=== PATIENT | female | born 1945 | race Caucasian/White ===

== ENCOUNTER → 2016-08-30 | Outpatient (CLI) | payer MEDICARE, BC ==
[2016-08-30 10:03] LABS: ABSOLUTE BASOPHILS # (AUTO) 0.1 10^3/uL (0.0-0.2); ABSOLUTE EOSINOPHILS # (AUTO) 0.4 10^3/uL (0.0-0.6); ABSOLUTE MONOCYTES (AUTO) 0.5 10^3/uL (0.1-1.4); ABSOLUTE NEUT (AUTO) 5.7 10^3/uL (1.7-8.2); BASOPHILS % (AUTO) 1.1 % (0-2); EOSINOPHILS % (AUTO) 4.1 % (0-6); HEMATOCRIT 41.2 % (36.0-47.0); HEMOGLOBIN 13.6 g/dL (12.0-15.5); HGB HCT DIFFERENCE -0.4; LYMPHOCYTES % (AUTO) 30.8 % (13-45); MEAN CORPUSCULAR HEMOGLOBIN 29.9 pg (27.0-33.4); MEAN CORPUSCULAR HGB CONC 33.1 g/dL (32.0-36.0); MEAN CORPUSCULAR VOLUME 90 fl (80-97); MONOCYTES % (AUTO) 5.5 % (3-13); RED BLOOD COUNT 4.56 10^6/uL (3.72-5.28); SEGMENTED NEUTROPHILS % (AUTO) 58.5 % (42-78); WHITE BLOOD COUNT 9.7 10^3/uL (4.0-10.5)
[2016-08-30 10:31] LABS: ALANINE AMINOTRANSFERASE 75 U/L (9-52); ALBUMIN 4.5 g/dL (3.5-5.0); ALKALINE PHOSPHATASE 183 U/L (38-126); ANION GAP 14 (5-19); ASPARTATE AMINO TRANSFERASE 98 U/L (14-36); BILIRUBIN,DIRECT 0.4 mg/dL (0.0-0.4); BLOOD UREA NITROGEN 10 mg/dL (7-20); CALCIUM 10.3 mg/dL (8.4-10.2); CARBON DIOXIDE 25 mmol/L (22-30); CHLORIDE 103 mmol/L (98-107); CREATININE RESULT 0.99 mg/dL (0.52-1.25); GLUCOSE 253 mg/dL (75-110); POTASSIUM 4.3 mmol/L (3.6-5.0); SODIUM 141.5 mmol/L (137-145); TOTAL PROTEIN 8.6 g/dL (6.3-8.2)
[2016-08-30 10:53] LABS: THYROID STIMULATING HORMONE 2.98 uIU/mL (0.47-4.68)
[2016-09-01 14:09] LABS: CHOLESTEROL 179.65 mg/dL (0-200); Direct HDL 51 mg/dL (>40); TRIGLYCERIDES 159 mg/dL (<150)
[2016-09-01 14:20] LABS: DIRECT LDL 99 mg/dL (<100)
[2016-09-01 14:24] LABS: VLDL CHOLESTEROL 31.8 mg/dL (10-31)
== END ==
LOC: OD 09:09
PROVIDERS: ATTEND Family Medicine
DX: Z79.899 Other long term (current) drug therapy (principal); E04.0 Nontoxic diffuse goiter; R73.9 Hyperglycemia, unspecified; Z13.1 Encounter for screening for diabetes mellitus; E53.8 Deficiency of other specified B group vitamins; R25.9 Unspecified abnormal involuntary movements; E11.65 Type 2 diabetes mellitus with hyperglycemia; T50.905A Adverse effect of unspecified drugs, medicaments and biological substances, initial encounter
CPT/HCPCS: 36415; 80048; 80061; 80076; 82306; 82607; 82947; 83036; 84439; 84443; 85025

== ENCOUNTER → 2016-11-24 | Outpatient (CLI) | payer MEDICARE, BC ==
[2016-11-24 11:15] LABS: ALANINE AMINOTRANSFERASE 40 U/L (9-52); ALBUMIN 4.6 g/dL (3.5-5.0); ALKALINE PHOSPHATASE 105 U/L (38-126); ANION GAP 13 (5-19); ASPARTATE AMINO TRANSFERASE 29 U/L (14-36); BILIRUBIN,DIRECT 0.4 mg/dL (0.0-0.4); BILIRUBIN,TOTAL 0.6 mg/dL (0.2-1.3); BLOOD UREA NITROGEN 20 mg/dL (7-20); CALCIUM 10.7 mg/dL (8.4-10.2); CARBON DIOXIDE 27 mmol/L (22-30); CHLORIDE 104 mmol/L (98-107); CHOLESTEROL 136.01 mg/dL (0-200); CREATININE RESULT 1.18 mg/dL (0.52-1.25); Direct HDL 60 mg/dL (>40); GLUCOSE 108 mg/dL (75-110); POTASSIUM 4.6 mmol/L (3.6-5.0); SODIUM 144.2 mmol/L (137-145); TOTAL PROTEIN 8.2 g/dL (6.3-8.2); TRIGLYCERIDES 137 mg/dL (<150)
[2016-11-24 11:37] LABS: DIRECT LDL 53 mg/dL (<100)
[2016-11-25 10:38] LABS: CREATININE URINE 129.2 mg/dL (Not Estab.); MICROALBUMIN URINE 39.7 ug/mL (Not Estab.)
== END ==
LOC: OD 09:36
PROVIDERS: ATTEND Family Medicine
DX: E11.65 Type 2 diabetes mellitus with hyperglycemia (principal); E78.5 Hyperlipidemia, unspecified
CPT/HCPCS: 36415; 80048; 80061; 80076; 82043; 82570; 83036

== ENCOUNTER → 2016-12-01 | Outpatient (CLI) | payer MEDICARE, BC | LOC: OD 11:51 | PROVIDERS: ATTEND Family Medicine | DX: E83.52 Hypercalcemia (principal) | CPT/HCPCS: 36415; 82306 ==

== ENCOUNTER → 2017-03-14 | Outpatient (CLI) | payer MEDICARE, BC | LOC: OD 11:40 | PROVIDERS: ATTEND Family Medicine | DX: E11.65 Type 2 diabetes mellitus with hyperglycemia (principal) | CPT/HCPCS: 36415; 83036 ==

== ENCOUNTER → 2017-03-25 | Outpatient (CLI) | payer MEDICARE, BC ==
--- NOTE | 2017-03-25 15:10 | WOMENS IMAGING REPORT ---
EXAM DESCRIPTION: BONE DENSITY HIP/SPINE COMPLETED DATE/TIME: 03/25/2017 1:25 pm REASON FOR STUDY: ASYMPTOMATIC MENOPAUSAL STATE Z78.0 ASYMPTOMATIC MENOPAUSAL STATE COMPARISON: 2006 TECHNIQUE: Dual-Energy X-ray Absorptiometry (DEXA) of the AP Spine and Hip. LIMITATIONS: None. FINDINGS: LUMBAR SPINE: The bone mineral density (BMD) measured from L1-L4 in the AP projection correlates with a T-score of +3.3, which is normal as defined by the World Health Organization. This is similar compared to 2006 HIP: The bone mineral density (BMD) measured in the left femoral neck at the hip correlates with a T-score of -1.1, which is osteopenic as defined by the World Health Organization. This is similar compared to 2006 IMPRESSION: 1. LUMBAR SPINE: Normal 2. HIP: Osteopenic COMMENT: The World Health Organization defines low BMD as follows: T-score: Normal: Greater than -1.0 Osteopenia: Between -1.0 and -2.5 Osteoporosis: Less than -2.5 without fractures Established osteoporosis: Less than -2.5 with fractures In general, you may wish to consider: Diagnosis Treatment Follow-up DEXA Normal BMD Prevention 2-3 years Osteopenia Prevention/Therapy 1-2 years Osteoporosis Therapy Yearly TECHNICAL DOCUMENTATION: JOB ID: [id number] [employer]- All Rights Reserved
== END ==
LOC: WI 13:15
PROVIDERS: ATTEND Obstetrics & Gynecology
DX: M85.88 Other specified disorders of bone density and structure, other site (principal); Z78.0 Asymptomatic menopausal state
CPT/HCPCS: 77080

== ENCOUNTER → 2017-04-11 | Outpatient (CLI) | payer MEDICARE, BC ==
[2017-04-11 10:56] LABS: ABSOLUTE BASOPHILS # (AUTO) 0.1 10^3/uL (0.0-0.2); ABSOLUTE EOSINOPHILS # (AUTO) 0.3 10^3/uL (0.0-0.6); ABSOLUTE LYMPHOCYTES (AUTO) 3.3 10^3/uL (0.5-4.7); ABSOLUTE MONOCYTES (AUTO) 0.5 10^3/uL (0.1-1.4); ABSOLUTE NEUT (AUTO) 4.1 10^3/uL (1.7-8.2); BASOPHILS % (AUTO) 0.7 % (0-2); EOSINOPHILS % (AUTO) 3.3 % (0-6); HEMATOCRIT 40.6 % (36.0-47.0); HEMOGLOBIN 13.7 g/dL (12.0-15.5); LYMPHOCYTES % (AUTO) 40.2 % (13-45); MEAN CORPUSCULAR HGB CONC 33.7 g/dL (32.0-36.0); MEAN CORPUSCULAR VOLUME 89 fl (80-97); MONOCYTES % (AUTO) 5.6 % (3-13); PLATELET COUNT 241 10^3/uL (150-450); RED BLOOD COUNT 4.55 10^6/uL (3.72-5.28); RED CELL DISTRIBUTION WIDTH 13.3 % (11.5-14.0); SEGMENTED NEUTROPHILS % (AUTO) 50.2 % (42-78); TOTAL CELLS COUNTED % (AUTO) 100 %; WHITE BLOOD COUNT 8.1 10^3/uL (4.0-10.5)
[2017-04-11 11:02] LABS: APPEARANCE,URINE CLEAR; BILIRUBIN,URINE NEGATIVE (NEGATIVE); COLOR,URINE YELLOW; GLUCOSE, URINE NEGATIVE (NEGATIVE); KETONES,URINE NEGATIVE (NEGATIVE); LEUKOCYTE ESTERASE,URINE TRACE (NEGATIVE); NITRITE,URINE NEGATIVE (NEGATIVE); PROTEIN,URINE NEGATIVE (NEGATIVE); URINE SPECIFIC GRAVITY 1.012; UROBILINOGEN,URINE NEGATIVE mg/dL (<2.0)
[2017-04-11 11:19] LABS: ALANINE AMINOTRANSFERASE 52 U/L (9-52); ALBUMIN 4.6 g/dL (3.5-5.0); ALKALINE PHOSPHATASE 100 U/L (38-126); ANION GAP 9 (5-19); ASPARTATE AMINO TRANSFERASE 46 U/L (14-36); BILIRUBIN,DIRECT 0.3 mg/dL (0.0-0.4); BILIRUBIN,TOTAL 0.5 mg/dL (0.2-1.3); BLOOD UREA NITROGEN 11 mg/dL (7-20); CALCIUM 10.3 mg/dL (8.4-10.2); CARBON DIOXIDE 29 mmol/L (22-30); CHLORIDE 108 mmol/L (98-107); GLUCOSE 128 mg/dL (75-110); POTASSIUM 4.1 mmol/L (3.6-5.0); SODIUM 146.1 mmol/L (137-145); TOTAL PROTEIN 7.8 g/dL (6.3-8.2)
== END ==
LOC: OD 09:48
PROVIDERS: ATTEND Family Medicine
DX: N17.9 Acute kidney failure, unspecified (principal); R74.0 Nonspecific elevation of levels of transaminase and lactic acid dehydrogenase [LDH]; D72.829 Elevated white blood cell count, unspecified
CPT/HCPCS: 36415; 80048; 80076; 81001; 85025

== ENCOUNTER → 2017-06-09 | Outpatient (CLI) | payer MEDICARE, BC ==
[2017-06-09 10:11] LABS: ABSOLUTE BASOPHILS # (AUTO) 0.1 10^3/uL (0.0-0.2); ABSOLUTE EOSINOPHILS # (AUTO) 0.3 10^3/uL (0.0-0.6); ABSOLUTE LYMPHOCYTES (AUTO) 3.5 10^3/uL (0.5-4.7); ABSOLUTE MONOCYTES (AUTO) 0.6 10^3/uL (0.1-1.4); ABSOLUTE NEUT (AUTO) 5.4 10^3/uL (1.7-8.2); BASOPHILS % (AUTO) 0.6 % (0-2); EOSINOPHILS % (AUTO) 3.5 % (0-6); HEMATOCRIT 40.6 % (36.0-47.0); HEMOGLOBIN 13.7 g/dL (12.0-15.5); LYMPHOCYTES % (AUTO) 35.4 % (13-45); MEAN CORPUSCULAR HEMOGLOBIN 29.6 pg (27.0-33.4); MEAN CORPUSCULAR HGB CONC 33.8 g/dL (32.0-36.0); MEAN CORPUSCULAR VOLUME 88 fl (80-97); MONOCYTES % (AUTO) 5.7 % (3-13); PLATELET COUNT 236 10^3/uL (150-450); RED BLOOD COUNT 4.64 10^6/uL (3.72-5.28); RED CELL DISTRIBUTION WIDTH 12.7 % (11.5-14.0); SEGMENTED NEUTROPHILS % (AUTO) 54.8 % (42-78); TOTAL CELLS COUNTED % (AUTO) 100 %; WHITE BLOOD COUNT 9.9 10^3/uL (4.0-10.5)
[2017-06-09 10:36] LABS: ALANINE AMINOTRANSFERASE 102 U/L (9-52); ALBUMIN 4.7 g/dL (3.5-5.0); ALKALINE PHOSPHATASE 106 U/L (38-126); ANION GAP 13 (5-19); ASPARTATE AMINO TRANSFERASE 80 U/L (14-36); BILIRUBIN,DIRECT 0.2 mg/dL (0.0-0.4); BILIRUBIN,TOTAL 0.4 mg/dL (0.2-1.3); BLOOD UREA NITROGEN 15 mg/dL (7-20); CALCIUM 10.4 mg/dL (8.4-10.2); CARBON DIOXIDE 26 mmol/L (22-30); CHLORIDE 104 mmol/L (98-107); CHOLESTEROL 158.01 mg/dL (0-200); GLUCOSE 149 mg/dL (75-110); POTASSIUM 4.5 mmol/L (3.6-5.0); SODIUM 142.6 mmol/L (137-145); TOTAL PROTEIN 7.7 g/dL (6.3-8.2); TRIGLYCERIDES 194 mg/dL (<150)
[2017-06-09 10:47] LABS: DIRECT LDL 85 mg/dL (<100); VLDL CHOLESTEROL 38.8 mg/dL (10-31)
[2017-06-10 12:39] LABS: CREATININE URINE 103.6 mg/dL (Not Estab.); MICROALBUMIN URINE 29.7 ug/mL (Not Estab.)
== END ==
LOC: OD 09:19
PROVIDERS: ATTEND Family Medicine
DX: E11.9 Type 2 diabetes mellitus without complications (principal); Z79.899 Other long term (current) drug therapy
CPT/HCPCS: 36415; 80053; 80061; 82043; 82570; 83036; 85025

== ENCOUNTER → 2017-07-27 | Outpatient (CLI) | payer MEDICARE, BC | LOC: OD 15:08 | PROVIDERS: ATTEND Psychiatry & Neurology Psychiatry | DX: F31.9 Bipolar disorder, unspecified (principal) | CPT/HCPCS: 36415; 80178 ==

== ENCOUNTER → 2017-08-26 | Outpatient (CLI) | payer MEDICARE, BC ==
[2017-08-26 11:39] LABS: ALANINE AMINOTRANSFERASE 123 U/L (9-52); ANION GAP 14 (5-19); ASPARTATE AMINO TRANSFERASE 134 U/L (14-36); BLOOD UREA NITROGEN 17 mg/dL (7-20); CALCIUM 10.8 mg/dL (8.4-10.2); CARBON DIOXIDE 27 mmol/L (22-30); CHLORIDE 105 mmol/L (98-107); GLUCOSE 181 mg/dL (75-110); POTASSIUM 4.4 mmol/L (3.6-5.0)
== END ==
LOC: OD 10:16
PROVIDERS: ATTEND Family Medicine
DX: E11.9 Type 2 diabetes mellitus without complications (principal); R74.0 Nonspecific elevation of levels of transaminase and lactic acid dehydrogenase [LDH]
CPT/HCPCS: 36415; 80048; 83036; 84450; 84460

== ENCOUNTER → 2017-09-07 | Outpatient (CLI) | payer MEDICARE, BC | LOC: OD 08:26 | PROVIDERS: ATTEND Family Medicine | DX: E83.52 Hypercalcemia (principal) | CPT/HCPCS: 36415; 82306; 82330; 83970 ==

== ENCOUNTER → 2017-09-07 | Outpatient (CLI) | payer MEDICARE, BC ==
--- NOTE | 2017-09-07 09:06 | RADIOLOGY REPORT (SQ) ---
EXAM DESCRIPTION: U/S ABDOMEN LIMITED W/O DOP COMPLETED DATE/TIME: 09/07/2017 8:24 am REASON FOR STUDY: NONSPEC ELEV OF LEVELS OF TRANSAMNS LACTIC ACID DEHYDRGNSE (R74.0) I69.892 FACI AL WEAKNESS FOLLOWING OTHER CEREBROVASCULAR DISE R74.0 NONSPEC ELEV OF LEVELS OF TRANSAMNS LACTIC ACID DEHY COMPARISON: March 2014 TECHNIQUE: Dynamic and static grayscale images acquired of the abdomen and recorded on PACS. Additio nal selected color Doppler and spectral images recorded. LIMITATIONS: None. FINDINGS: PANCREAS: No masses. No peripancreatic edema or fluid collections. LIVER: Echotexture is coarse with increased echogenicity consistent with fatty infiltration. LIVER VASCULATURE: Normal directional flow of the main portal vein. GALLBLADDER: No stones. There is some nonshadowing echogenicity in the gallbladder lumen most consis tent with biliary sludge. Normal wall thickness. No pericholecystic fluid. ULTRASOUND-DETECTED FERGUSON'S SIGN: Negative. INTRAHEPATIC DUCTS AND COMMON DUCT: CBD and intrahepatic ducts normal caliber. No filling defects. INFERIOR VENA CAVA: Normal flow. AORTA: No aneurysm. RIGHT KIDNEY: Right kidney measures 10.3 cm in length. Normal echogenicity. No solid or suspicio us masses. No hydronephrosis. No calcifications. PERITONEAL AND RIGHT PLEURAL SPACE: No ascites or effusions. OTHER: No other significant finding. IMPRESSION: FATTY INFILTRATION OF THE LIVER. No gallstones are identified. Findings consistent wit h biliary sludge. No dilated bile ducts are identified. Other findings as noted above TECHNICAL DOCUMENTATION: JOB ID: [id number] [employer]- All Rights Reserved Reading location - IP/workstation name: [email or web address]
--- NOTE | 2017-09-07 10:13 | RADIOLOGY REPORT (SQ) ---
EXAM DESCRIPTION: MRI HEAD WITHOUT COMPLETED DATE/TIME: 09/07/2017 7:51 am REASON FOR STUDY: FACIAL WEAKNESS FOLLOWING OTHER CEREBROVASCULAR DISEASE (I69.892) I69.892 FACIAL WEAKNESS FOLLOWING OTHER CEREBROVASCULAR DISE R74.0 NONSPEC ELEV OF LEVELS OF TRANSAMNS LACTIC ACI D DEHY COMPARISON: None. TECHNIQUE: Multiplanar imaging includes non-contrasted T1, T2, FLAIR, and diffusion with ADC map seq uences. Images stored on PACS. LIMITATIONS: None. FINDINGS: ANATOMY: No anomalies. Normal vascular flow voids. Pituitary fossa normal. CSF SPACES: Normal in size and contour. No hemorrhage. CEREBRUM: Sulci and gyri normal in size and contour. Moderate diffuse increased FLAIR/T2 white matte r signal in the bifrontal and biparietal regions from chronic small vessel ischemic change. No evide nce of hemorrhage, mass, or extraaxial fluid collection. POSTERIOR FOSSA: No signal alteration. No hemorrhage. No edema, masses or mass effect. Internal chet tory canals, cerebello-pontine angles, mastoids normal. DIFFUSION IMAGING: Negative for acute or sub-acute infarction. ORBITS: No masses. Globes post cataract surgery. PARANASAL SINUSES: No fluid levels. Mucosa normal. OTHER: No other significant finding. IMPRESSION: MODERATE CHRONIC SMALL VESSEL ISCHEMIC CHANGE IN THE HEMISPHERES. OTHERWISE UNREMARKABLE MRI OF THE BRAIN WITHOUT INTRAVENOUS GADOLINIUM CONTRAST. EVIDENCE OF ACUTE STROKE: NO. TECHNICAL DOCUMENTATION: JOB ID: [id number] [employer]- All Rights Reserved Reading location - IP/workstation name: [email or web address]
== END ==
LOC: RAD 06:37
PROVIDERS: ATTEND Family Medicine
DX: I69.892 Facial weakness following other cerebrovascular disease (principal); R74.0 Nonspecific elevation of levels of transaminase and lactic acid dehydrogenase [LDH]
CPT/HCPCS: 70551; 76705

== ENCOUNTER → 2017-09-16 | Outpatient (CLI) | payer MEDICARE, BC ==
--- NOTE | 2017-09-16 15:56 | RADIOLOGY REPORT (SQ) ---
EXAM DESCRIPTION: NM WHOLE BODY BONE SCAN COMPLETED DATE/TIME: 09/16/2017 3:28 pm REASON FOR STUDY: HYPERCALCEMIA (E83.52) E83.52 HYPERCALCEMIA COMPARISON: Bone density 03/25/2017 CHEST FILM 08/03/2010 RADIONUCLIDE AND DOSE: 20.8 millicuries Tc99m MDP. The route of agent administration: Intravenous. ADDITIONAL DRUGS AND DOSES: None. TECHNIQUE: Routine delayed images at 3 hour post radionuclide injection acquired of the bony skeleto n including anterior and posterior whole-body projections and additional focused images as needed. LIMITATIONS: None. FINDINGS: BONES: Mild increased uptake at the shoulders, knees, and he in characteristic locations f or osteoarthritis. No increased uptake over the skeleton worrisome for metastatic disease. KIDNEYS: Symmetric excretion without obstruction. OTHER: No other significant finding. IMPRESSION: NORMAL BONE SCAN FOR AGE. COMMENT: Quality measure 147: Current bone scan is compared with any available plain radiographs, p rior bone scans, and CT/MRI. TECHNICAL DOCUMENTATION: JOB ID: [id number] [employer]- All Rights Reserved Reading location - IP/workstation name: [email or web address]
== END ==
LOC: RAD 10:44
PROVIDERS: ATTEND Family Medicine
DX: E83.52 Hypercalcemia (principal)
CPT/HCPCS: 78306; A9561

== ENCOUNTER → 2017-10-12 | Outpatient (CLI) | payer MEDICARE, BC ==
[2017-10-12 12:18] LABS: ALANINE AMINOTRANSFERASE 70 U/L (9-52); ALBUMIN 4.4 g/dL (3.5-5.0); ALKALINE PHOSPHATASE 115 U/L (38-126); ASPARTATE AMINO TRANSFERASE 62 U/L (14-36); BILIRUBIN,DIRECT 0.2 mg/dL (0.0-0.4); BILIRUBIN,TOTAL 0.2 mg/dL (0.2-1.3); BLOOD UREA NITROGEN 11 mg/dL (7-20); CALCIUM 10.3 mg/dL (8.4-10.2); TOTAL PROTEIN 7.7 g/dL (6.3-8.2)
[2017-10-13 13:40] LABS: HEPATITIS A AB IGM Negative (Negative); HEPATITIS B CORE AB IGM Negative (Negative); HEPATITIS C VIRUS AB <0.1 s/co ratio (0.0-0.9); HEPATITS B SURFACE ANTIGEN Negative (Negative)
[2017-10-13 14:39] LABS: HEPATITIS C VIRUS ANTIBODY <0.1 s/co ratio (0.0-0.9)
== END ==
LOC: OD 11:05
PROVIDERS: ATTEND Family Medicine
DX: E83.52 Hypercalcemia (principal); R74.0 Nonspecific elevation of levels of transaminase and lactic acid dehydrogenase [LDH]; B17.9 Acute viral hepatitis, unspecified
CPT/HCPCS: 36415; 80074; 80076; 82310; 82565; 84520; 86803; 86804

== ENCOUNTER → 2017-11-10 | Outpatient (CLI) | payer MEDICARE, BC ==
[2017-11-10 15:42] LABS: ABSOLUTE BASOPHILS # (AUTO) 0.1 10^3/uL (0.0-0.2); ABSOLUTE EOSINOPHILS # (AUTO) 0.3 10^3/uL (0.0-0.6); ABSOLUTE LYMPHOCYTES (AUTO) 3.8 10^3/uL (0.5-4.7); ABSOLUTE MONOCYTES (AUTO) 0.5 10^3/uL (0.1-1.4); ABSOLUTE NEUT (AUTO) 5.2 10^3/uL (1.7-8.2); BASOPHILS % (AUTO) 0.7 % (0-2); EOSINOPHILS % (AUTO) 3.4 % (0-6); HEMATOCRIT 39.1 % (36.0-47.0); LYMPHOCYTES % (AUTO) 38.3 % (13-45); MEAN CORPUSCULAR HGB CONC 33.3 g/dL (32.0-36.0); MEAN CORPUSCULAR VOLUME 90 fl (80-97); MONOCYTES % (AUTO) 5.1 % (3-13); PLATELET COUNT 233 10^3/uL (150-450); RED BLOOD COUNT 4.35 10^6/uL (3.72-5.28); RED CELL DISTRIBUTION WIDTH 13.4 % (11.5-14.0); SEGMENTED NEUTROPHILS % (AUTO) 52.5 % (42-78); TOTAL CELLS COUNTED % (AUTO) 100 %; WHITE BLOOD COUNT 9.9 10^3/uL (4.0-10.5)
[2017-11-10 16:00] LABS: ALANINE AMINOTRANSFERASE 96 U/L (9-52); ALBUMIN 4.3 g/dL (3.5-5.0); ALKALINE PHOSPHATASE 152 U/L (38-126); ASPARTATE AMINO TRANSFERASE 105 U/L (14-36); BILIRUBIN,DIRECT 0.3 mg/dL (0.0-0.4); BILIRUBIN,TOTAL 0.4 mg/dL (0.2-1.3); TOTAL PROTEIN 7.7 g/dL (6.3-8.2)
[2017-11-14 07:06] LABS: MITOCHONDRIAL (M2) ANTIBODY 7.5 Units (0.0-20.0)
== END ==
LOC: OD 15:00
PROVIDERS: ATTEND Physician Assistant Surgical
DX: K76.0 Fatty (change of) liver, not elsewhere classified (principal); R94.5 Abnormal results of liver function studies
CPT/HCPCS: 36415; 80076; 85025; 86038; 86235; 86256

== ENCOUNTER → 2017-12-28 | Outpatient (CLI) | payer MEDICARE, BC ==
[2017-12-28 12:26] LABS: ALANINE AMINOTRANSFERASE 70 U/L (9-52); ALKALINE PHOSPHATASE 100 U/L (38-126); ANION GAP 7 (5-19); ASPARTATE AMINO TRANSFERASE 61 U/L (14-36); BILIRUBIN,DIRECT 0.5 mg/dL (0.0-0.4); BILIRUBIN,TOTAL 0.6 mg/dL (0.2-1.3); BLOOD UREA NITROGEN 11 mg/dL (7-20); CALCIUM 9.7 mg/dL (8.4-10.2); CARBON DIOXIDE 26 mmol/L (22-30); CHLORIDE 107 mmol/L (98-107); GLUCOSE 132 mg/dL (75-110); POTASSIUM 4.1 mmol/L (3.6-5.0); SODIUM 140.4 mmol/L (137-145); TOTAL PROTEIN 7.3 g/dL (6.3-8.2)
[2017-12-29 13:38] LABS: CREATININE URINE 41.7 mg/dL (Not Estab.); MICROALBUMIN URINE 5.1 ug/mL (Not Estab.)
== END ==
LOC: OD 10:23
PROVIDERS: ATTEND Family Medicine
DX: F31.9 Bipolar disorder, unspecified (principal); E11.9 Type 2 diabetes mellitus without complications; Z51.81 Encounter for therapeutic drug level monitoring; Z79.899 Other long term (current) drug therapy
CPT/HCPCS: 36415; 80053; 80178; 82043; 82570; 83036

== ENCOUNTER → 2018-01-10 | Outpatient (CLI) | payer MEDICARE, BC ==
[2018-01-10 14:03] LABS: FREE T3 3.13 pg/mL (2.77-5.27); FREE T4 (FREE THYROXINE) 1.21 ng/dL (0.78-2.19)
== END ==
LOC: OD 12:31
PROVIDERS: ATTEND Family Medicine
DX: E04.0 Nontoxic diffuse goiter (principal)
CPT/HCPCS: 36415; 84439; 84443; 84481

== ENCOUNTER → 2018-02-03 | Outpatient (CLI) | payer MEDICARE, BC | LOC: OD 07:38 | PROVIDERS: ATTEND Psychiatry & Neurology Psychiatry | DX: Z51.81 Encounter for therapeutic drug level monitoring (principal); Z79.899 Other long term (current) drug therapy; F31.9 Bipolar disorder, unspecified | CPT/HCPCS: 36415; 80178 ==

== ENCOUNTER 2018-02-08 19:20 | Inpatient (IN) | payer MEDICARE, BC ==
--- NOTE | 2018-02-08 20:04 | ER Document Report ---
ED General - General Stated Complaint: WEAKNESS Time Seen by Provider: 02/08/18 19:27 Notes: Patient is a 72-year-old female that comes to the emergency department for chief complaint of weakness. She states that throughout the day she has felt incredibly weak all over, she states that she stands up she feels somewhat dizzy. She denies chest pain, shortness of breath, passing out, fever, nausea or vomiting or any other locations of pain. She states she has still been eating and drinking. She comes from home, has home health at home. Reports that a few days ago she had lab work and they called and told her her lithium was high. Limited medical history reported is bipolar disorder, asthma, and hysterectomy. TRAVEL OUTSIDE OF THE [place] IN LAST 30 DAYS: No - Related Data Allergies/Adverse Reactions: divalproex sodium [From Depakote] Allergy (Unknown, Verified 01/08/16 12:18) risperidone [From Risperdal] Allergy (Unknown, Verified 01/08/16 12:18) topiramate [From Topamax] Allergy (Unknown, Verified 01/08/16 12:18) Past Medical History - General Information source: Patient, Emergency Med Personnel - Social History Smoking Status: Never Smoker Frequency of alcohol use: None Drug Abuse: None Lives with: Alone Family History: Reviewed & Not Pertinent - Past Medical History Cardiac Medical History: Denies: Hx Heart Attack, Hx Hypertension Pulmonary Medical History: Reports: Hx Asthma - ALLERGY INDUCED SOB Neurological Medical History: Denies: Hx Cerebrovascular Accident, Hx Seizures GI Medical History: Denies: Hx Hepatitis, Hx Hiatal Hernia, Hx Ulcer Psychiatric Medical History: Reports: Hx Bipolar Disorder Infectious Medical History: Denies: Hx Hepatitis Past Surgical History: Reports: Hx Hysterectomy. Denies: Hx Mastectomy, Hx Open Heart Surgery, Hx Pacemaker Review of Systems - Review of Systems Constitutional: See HPI EENT: No symptoms reported Cardiovascular: No symptoms reported Respiratory: No symptoms reported Gastrointestinal: No symptoms reported Genitourinary: No symptoms reported Female Genitourinary: No symptoms reported Musculoskeletal: See HPI Skin: No symptoms reported Hematologic/Lymphatic: No symptoms reported Neurological/Psychological: See HPI Physical Exam - Vital signs Vitals: Resp Pulse Ox 19 94 02/08/18 19:37 02/08/18 19:37 - Notes Notes: GENERAL: Patient speaks quietly but she is still interactive. She does not appear to be in any distress. HEAD: Normocephalic, atraumatic. EYES: Pupils equal, round, and reactive to light. Extraocular movements intact. ENT: Oral mucosa moist, tongue midline. Oropharynx unremarkable. Airway patent. Nares patent, no nasal septal hematoma, TM's intact. NECK: Full range of motion. Supple. Trachea midline. LUNGS: Clear to auscultation bilaterally, no wheezes, rales, or rhonchi. No respiratory distress. HEART: Regular rate and rhythm. No murmur ABDOMEN: Soft, non-tender. Non-distended. Bowel sounds present in all 4 quadrants. GENITOURINARY: Deferred EXTREMITIES: Moves all 4 extremities spontaneously. No edema, normal radial and dorsalis pedis pulses bilaterally. No cyanosis. BACK: no cervical, thoracic, lumbar midline tenderness. No saddle anesthesia, normal distal neurovascular exam. NEUROLOGICAL: Patient is sluggish, she has slow motor response, she has intermittent shaking but no clonus. Full range of motion of all extremities, cranial nerves intact. She is oriented to person, place, and events. PSYCH: Normal affect, normal mood. SKIN: Warm, dry, normal turgor. No rashes or lesions noted. Course - Re-evaluation Re-evalutation: CBC unremarkable, chemistry unremarkable, lithium showing critically high level at 2.3. Urinalysis unremarkable. Troponin negative. EKG sinus rhythm without QTC prolongation or other concerning acute abnormality. Chest x-ray unremarkable. 02/08/18 21:00 Home health nurse came to bedside. She states that for the past 2 days patient has had diarrhea, she has had sluggishness and weakness and this is progressively worse. This is all abnormal for patient, she normally ambulates without any difficulty. Home health nurse states lithium level was increased from 450 mg once a day to 450 mg twice a day 2 weeks ago. Patient has been compliant with her medications, no additional medications. Patient denies taking any additional medication, denies suicidal ideations. 02/08/18 21:20 I spoke to el controlAngela, she asked about her symptoms, vital signs, EKG, chemistry. After relating the findings, recommendation at this time is to start on maintenance fluids at 200 cc/h and repeat lithium levels in 6-8 hours monitoring for additional symptoms such as confusion. She does not feel that dialysis is going to be necessary. No additional recommendations at this time. Spoke with Dr. Pastor, hospitalist, patient will be admitted to the ICU - Vital Signs Vital signs: Temp Pulse Resp BP Pulse Ox 97.4 F 73 16 123/46 L 98 02/09/18 00:33 02/09/18 00:33 02/09/18 00:33 02/09/18 00:33 02/09/18 00:33 - Laboratory Result Diagrams: 02/08/18 19:40 02/08/18 19:40 Laboratory results interpreted by me: 02/08/18 02/08/18 19:40 19:40 WBC 11.2 H Est GFR (Non-Af Amer) 54 L Calcium 10.4 H AST 52 H ALT 70 H [place] 2.3 H* Discharge - Discharge Clinical Impression: Weakness [place] toxicity Qualifiers: Encounter type: initial encounter Injury intent: accidental or unintentional Qualified Code(s): T56.891A - Toxic effect of other metals, accidental ( unintentional), initial encounter Diarrhea Qualifiers: Diarrhea type: unspecified type Qualified Code(s): R19.7 - Diarrhea, unspecified Condition: Stable Disposition: ADMITTED INPATIENT Admitting Provider: Hospitalist Unit Admitted: ICU
[2018-02-08 20:09] LABS: ABSOLUTE BASOPHILS # (AUTO) 0.1 10^3/uL (0.0-0.2); ABSOLUTE EOSINOPHILS # (AUTO) 0.5 10^3/uL (0.0-0.6); ABSOLUTE LYMPHOCYTES (AUTO) 4.3 10^3/uL (0.5-4.7); ABSOLUTE MONOCYTES (AUTO) 0.7 10^3/uL (0.1-1.4); ABSOLUTE NEUT (AUTO) 5.6 10^3/uL (1.7-8.2); BASOPHILS % (AUTO) 0.8 % (0-2); EOSINOPHILS % (AUTO) 4.2 % (0-6); HEMATOCRIT 41.4 % (36.0-47.0); HEMOGLOBIN 13.7 g/dL (12.0-15.5); LYMPHOCYTES % (AUTO) 38.9 % (13-45); MEAN CORPUSCULAR HEMOGLOBIN 29.7 pg (27.0-33.4); MEAN CORPUSCULAR HGB CONC 33.2 g/dL (32.0-36.0); MEAN CORPUSCULAR VOLUME 90 fl (80-97); MONOCYTES % (AUTO) 6.2 % (3-13); PLATELET COUNT 210 10^3/uL (150-450); RED BLOOD COUNT 4.62 10^6/uL (3.72-5.28); RED CELL DISTRIBUTION WIDTH 13.4 % (11.5-14.0); SEGMENTED NEUTROPHILS % (AUTO) 49.9 % (42-78); TOTAL CELLS COUNTED % (AUTO) 100 %; WHITE BLOOD COUNT 11.2 10^3/uL (4.0-10.5)
[2018-02-08 20:35] LABS: ALANINE AMINOTRANSFERASE 70 U/L (9-52); ALBUMIN 4.2 g/dL (3.5-5.0); ALKALINE PHOSPHATASE 97 U/L (38-126); ANION GAP 10 (5-19); ASPARTATE AMINO TRANSFERASE 52 U/L (14-36); BILIRUBIN,DIRECT 0.4 mg/dL (0.0-0.4); BILIRUBIN,TOTAL 0.7 mg/dL (0.2-1.3); BLOOD UREA NITROGEN 14 mg/dL (7-20); CALCIUM 10.4 mg/dL (8.4-10.2); CARBON DIOXIDE 24 mmol/L (22-30); CHLORIDE 106 mmol/L (98-107); CREATINE KINASE 31 U/L (30-135); GLUCOSE 94 mg/dL (75-110); POTASSIUM 3.9 mmol/L (3.6-5.0); SODIUM 139.9 mmol/L (137-145); TOTAL PROTEIN 7.6 g/dL (6.3-8.2)
[2018-02-08 20:39] LABS: LITHIUM 2.3 mEq/L (0.6-1.2)
--- NOTE | 2018-02-08 20:48 | RADIOLOGY REPORT (SQ) ---
EXAM DESCRIPTION: CHEST SINGLE VIEW COMPLETED DATE/TIME: 02/08/2018 8:23 pm REASON FOR STUDY: weakness COMPARISON: 08/03/2010 EXAM PARAMETERS: NUMBER OF VIEWS: One view. TECHNIQUE: Single frontal radiographic view of the chest acquired. RADIATION DOSE: NA LIMITATIONS: None. FINDINGS: LUNGS AND PLEURA: No opacities, masses or pneumothorax. No pleural effusion. MEDIASTINUM AND HILAR STRUCTURES: No masses. Contour normal. HEART AND VASCULAR STRUCTURES: Heart normal in size. Normal vasculature. BONES: No acute findings. HARDWARE: None in the chest. OTHER: No other significant finding. IMPRESSION: NO ACUTE RADIOGRAPHIC FINDING IN THE CHEST. TECHNICAL DOCUMENTATION: JOB ID: [id number] [employer]- All Rights Reserved Reading location - IP/workstation name: [email or web address]
[2018-02-08] MEDS ORDERED: NORMAL SALINE 1000 ML 500 ML IV ONE (21:12)
[2018-02-08 21:34] LABS: AMORPHOUS SEDIMENT,URINE TRACE /HPF; APPEARANCE,URINE CLEAR; BILIRUBIN,URINE NEGATIVE (NEGATIVE); COLOR,URINE YELLOW; GLUCOSE, URINE NEGATIVE (NEGATIVE); KETONES,URINE NEGATIVE (NEGATIVE); LEUKOCYTE ESTERASE,URINE NEGATIVE (NEGATIVE); NITRITE,URINE NEGATIVE (NEGATIVE); PROTEIN,URINE NEGATIVE (NEGATIVE); URINE SPECIFIC GRAVITY 1.012; UROBILINOGEN,URINE NEGATIVE mg/dL (<2.0)
[2018-02-09] MEDS ORDERED: METOCLOPRAMIDE HCL INJ/PF 10 MG/2 ML SDV IV PRN (00:40)
[2018-02-09] MEDS ORDERED: ACETAMINOPHEN 325 MG TABLET PO PRN (00:40)
[2018-02-09] MEDS ORDERED: NORMAL SALINE 1000 ML 1,000 ML IV PRN ×2 (00:40→02:47)
[2018-02-09] MEDS: NORMAL SALINE 1000 ML 1,000 ML IV PRN ×2 (01:39→11:03)
--- NOTE | 2018-02-09 02:46 | PDOC H&P ---
History of Present Illness Admission Date/PCP: 02/08/18 22:43 Patient complains of: Generalized weakness History of Present Illness: CASSANDRA LOOMIS is a 72 year old female history of bipolar disorder that comes to the emergency department for chief complaint of weakness. She states that throughout the day she has felt incredibly weak all over, she states that she stands up she feels somewhat dizzy with nonbloody diarrhea. She denies chest pain, shortness of breath, passing out, fever, nausea or vomiting or any other locations of pain. She states she has still been eating and drinking but less than her usual. She comes from home, has home health at home. Her lithium was recently increased from 450 mg once a day to 450 mg twice a day 2 weeks ago, patient is compliant with her medications. When I went to see the patient's she is extremely weak, even has difficulties to open her eyes. Tells me she is extremely tired and she cannot talk now. Her baseline is active and ambulates with no difficulties. In the emergency department her lithium levels were 2.3 ED attending is spoke to el controlNataliya, recommended supportive measures, close monitoring of her vital signs and cardiac monitoring. Patient started IV fluids with normal saline at 200 cc/h. Renal function at baseline with a creatinine of 1.02 Past Medical History Pulmonary Medical History: Reports: Asthma - ALLERGY INDUCED SOB Psychiatric Medical History: Reports: Bipolar Disorder Hematology: Reports: Anemia Past Surgical History Past Surgical History: Reports: Hysterectomy Social History Lives with: Alone Smoking Status: Never Smoker Hx Recreational Drug Use: No Drugs: None Hx Prescription Drug Abuse: No - Advance Directive Resuscitation Status: Full Code Family History Family History: Reviewed & Not Pertinent Parental Family History Reviewed: No - Unable to obtain at this time Children Family History Reviewed: NA Sibling(s) Family History Reviewed.: NA Medication/Allergy Home Medications: Aripiprazole [Abilify] 5 mg PO DAILY 01/08/16 Besifloxacin HCl [Besivance 0.6% Oph Susp 5 ml] 1 drop OP ASDIR 01/08/16 Difluprednate [Durezol] 5 ml OP DAILY 01/08/16 Estrogens,Conjugated [Premarin 0.625 Mg Tablet] 0.625 mg PO DAILY 01/08/16 Estrogens,Conjugated [Premarin Vaginal Cream (0.625 mg/gm) 30 gm] 42.5 gm VG QHS 01/08/16 Levothyroxine Sodium [Synthroid 0.025 mg Tablet] 25 mcg PO DAILY 01/08/16 [place] Carbonate [Lithobid 300 mg Capsule] 300 mg PO BID 01/08/16 Nepafenac [Ilevro] 1 drop OP ASDIR 01/08/16 Allergies/Adverse Reactions: divalproex sodium [From Depakote] Allergy (Unknown, Verified 01/08/16 12:18) risperidone [From Risperdal] Allergy (Unknown, Verified 01/08/16 12:18) topiramate [From Topamax] Allergy (Unknown, Verified 01/08/16 12:18) Review of Systems Review of Systems: As outlined in the HPI, others negative Physical Exam Vital Signs: Temp Pulse Resp BP Pulse Ox 97.4 F 73 16 123/46 L 98 02/09/18 00:33 02/09/18 00:33 02/09/18 00:33 02/09/18 00:33 02/09/18 00:33 Additional comments: General appearance: Well-developed, very somnolent, answers questions in a limited fashion, looks weak and ill, and appears to be in no acute distress Head: Normocephalic Eyes: Pupils myotic, rest cannot evaluate. Ears: External auditory canal and tympanic membranes clear, hearing grossly intact. Nose: No nasal discharge. Throat: Oral cavity and pharynx normal. No inflammation, swelling, exudate or lesions. Neck: Neck supple, nontender without lymphadenopathy, masses or thyromegaly. Cardiac: Normal S1 and S2. No S3, S4 or murmurs. Rhythm is regular. There is no peripheral edema, cyanosis or pallor. Extremities are warm and well perfused. Capillary refill is less than 2 seconds. No carotid bruits. Lungs: Clear to auscultation and percussion without rales, rhonchi, wheezing or diminished breath sounds. Not using accessory muscles. Abdomen: Positive bowel sounds. Soft. Nondistended, nontender. No guarding or rebound. No masses. No hepatosplenomegaly Extremities: No significant deformity or joint abnormality. No edema. Peripheral pulses intact. No varicosities. Neurological: Cranial nerves II through XII grossly intact. Strength and sensation symmetric and intact throughout. Reflexes 2+ throughout. Skin: Skin normal color, texture and turgor with no lesions or eruptions, warm and dry. Psychiatric: The mental examination revealed the patient was oriented to person , place, and time. The patient was able to demonstrate good judgment on recent. Results Laboratory Results: 02/08/18 02/08/18 19:40 21:00 Sodium 139.9 Potassium 3.9 Chloride 106 Carbon Dioxide 24 Anion Gap 10 BUN 14 Creatinine 1.02 Est GFR ( Amer) > 60 Est GFR (Non-Af Amer) 54 L Glucose 94 Calcium 10.4 H Total Bilirubin 0.7 Direct Bilirubin 0.4 AST 52 H ALT 70 H Alkaline Phosphatase 97 Creatine Kinase 31 Total Protein 7.6 Albumin 4.2 Urine Color YELLOW Urine Appearance CLEAR Urine pH 6.0 Ur Specific [place] 1.012 Urine Protein NEGATIVE Urine Glucose (UA) NEGATIVE Urine Ketones NEGATIVE Urine Blood NEGATIVE Urine Nitrite NEGATIVE Urine Bilirubin NEGATIVE Urine Urobilinogen NEGATIVE Ur Leukocyte Esterase NEGATIVE Urine WBC (Auto) 2 Urine RBC (Auto) 0 U Hyaline Cast (Auto) 9 Urine Bacteria (Auto) TRACE Squamous Epi Cells Auto 1 Amorphous Sediment Auto TRACE Urine Mucus (Auto) RARE Urine Ascorbic Acid NEGATIVE EKG Comments: Sinus rhythm with a ventricular rate of 68 bpm, T wave flattening in the anterior leads. Impressions: Chest X-Ray 02/08/18 20:03 IMPRESSION: NO ACUTE RADIOGRAPHIC FINDING IN THE CHEST. Assessment & Plan - Diagnosis (1) [place] toxicity Qualifiers: Encounter type: initial encounter Injury intent: accidental or unintentional Qualified Code(s): T56.891A - Toxic effect of other metals, accidental (unintentional), initial encounter Is this a current diagnosis for this admission?: Yes Plan: Patient comes with lithium toxicity, serum levels 2.3. EKG abnormalities with T wave flattening in the anterior leads. Patient with severe muscular weakness , diarrhea and drowsiness. We will transfer the patient to the ICU for close cardiac monitoring. Was placed on IV fluids with normal saline running at 200 cc/h. Her renal function is close to her baseline however I will place a consult for nephrology with Dr. Oro for evaluation and further recommendations. Seizure precautions, will monitor for agitation, hyperthermia, worsening confusion and delirium in between all others. Poison control is aware of the patient and recommended supportive therapy. (2) DVT prophylaxis Is this a current diagnosis for this admission?: Yes Plan: Heparin - Time Time Spent: 50 to 70 Minutes - Inpatient Certification Based on my medical assessment, after consideration of the patient's comorbidities, presenting symptoms, or acuity I expect that the services needed warrant INPATIENT care.: Yes I certify that my determination is in accordance with my understanding of Medicare's requirements for reasonable and necessary INPATIENT services [42 CFR 412.3e].: Yes Medical Necessity: Risk of Complication if Not Cared For in Hospital - Severe renal failure with need for hemodialysis. Seizures, agitation, confusion.
[2018-02-09] MEDS ORDERED: BESIFLOXACIN HCL 0.6% OPH SUSP 5 ML BOTTLE OP SCH (03:00)
[2018-02-09] MEDS ORDERED: (PENDING PHARMACY ID) (Nepafenac [Ilevro] 1 DROP) OP SCH (03:00)
[2018-02-09 04:50] LABS: ABSOLUTE BASOPHILS # (AUTO) 0.1 10^3/uL (0.0-0.2); ABSOLUTE EOSINOPHILS # (AUTO) 0.4 10^3/uL (0.0-0.6); ABSOLUTE LYMPHOCYTES (AUTO) 3.5 10^3/uL (0.5-4.7); ABSOLUTE MONOCYTES (AUTO) 0.6 10^3/uL (0.1-1.4); BASOPHILS % (AUTO) 0.7 % (0-2); EOSINOPHILS % (AUTO) 4.1 % (0-6); HEMATOCRIT 36.5 % (36.0-47.0); HEMOGLOBIN 12.3 g/dL (12.0-15.5); LYMPHOCYTES % (AUTO) 40.7 % (13-45); MEAN CORPUSCULAR HGB CONC 33.7 g/dL (32.0-36.0); MEAN CORPUSCULAR VOLUME 89 fl (80-97); MONOCYTES % (AUTO) 7.5 % (3-13); PLATELET COUNT 167 10^3/uL (150-450); RED CELL DISTRIBUTION WIDTH 12.9 % (11.5-14.0); TOTAL CELLS COUNTED % (AUTO) 100 %; WHITE BLOOD COUNT 8.6 10^3/uL (4.0-10.5)
[2018-02-09 04:59] LABS: INTERNATIONAL RATION (INR) 1.17; PROTHROMBIN TIME 15.5 SEC (11.4-15.4)
[2018-02-09 05:00] LABS: PARTIAL THROMBOPLASTIN TIME 29.5 SEC (23.5-35.8)
[2018-02-09 05:10] LABS: LITHIUM 1.7 mEq/L (0.6-1.2)
[2018-02-09] MEDS: HEPARIN SOD (PORCINE) 5,000 UNIT/ML 1 ML SYRINGE SUBCUT SCH ×3 (05:50→22:08)
[2018-02-09] MEDS ORDERED: LEVOTHYROXINE SODIUM 0.025 MG TABLET PO SCH (06:00)
--- NOTE | 2018-02-09 09:01 | EKG REPORT ---
SEVERITY:- BORDERLINE ECG - SINUS RHYTHM BORDERLINE T ABNORMALITIES, ANTERIOR LEADS : Confirmed by: Erma Berger 09-Feb-2018 09:00:45
[2018-02-09] MEDS ORDERED: (PENDING PHARMACY ID) (Difluprednate [Durezol] 5 ML) OP SCH (10:00)
[2018-02-09] MEDS ORDERED: PANTOPRAZOLE SODIUM 40 MG VIAL IV ONE (11:00)
[2018-02-09 14:34] LABS: ANION GAP 9 (5-19); BLOOD UREA NITROGEN 10 mg/dL (7-20); CALCIUM 9.2 mg/dL (8.4-10.2); CARBON DIOXIDE 23 mmol/L (22-30); CHLORIDE 112 mmol/L (98-107); GLUCOSE 137 mg/dL (75-110); LITHIUM 1.2 mEq/L (0.6-1.2); SODIUM 144.1 mmol/L (137-145)
[2018-02-09 16:03] LABS: FREE T3 2.54 pg/mL (2.77-5.27); FREE T4 (FREE THYROXINE) 1.49 ng/dL (0.78-2.19)
[2018-02-09] MEDS: POTASSI CL 20 MEQ/D5-1/2NS 1L 1,000 ML IV PRN (16:22)
[2018-02-09] MEDS: METFORMIN HCL 500 MG TABLET PO SCH (16:22)
--- NOTE | 2018-02-09 18:59 | PDOC PROGRESS REPORT ---
Subjective Progress Note for:: 02/09/18 Subjective:: CASSANDRA LOOMIS is a 72 year old female who presented to the emergency room with profound generalized weakness. She explained that she feels "incredibly weak all over"and becomes lightheaded when she stands up. She has been having multiple loose watery diarrhea stools with abdominal cramping associated with the stools but not in any other time. She has had no nausea vomiting or abdominal pain and she further denies chest pain dyspnea fever chills and cough. Her appetite has been decreased and she is not drinking as much fluid as she normally would. Recently her oral lithium therapy for bipolar illness was increased from 450 mg daily to 450 mg twice daily. Is been approximately 2 weeks since this conversion was done and the patient has noted the insidious onset of and worsening of her symptoms over that same approximate timeframe. In the emergency room patient was found to have a lithium level of 2.3 with a creatinine of 1.02 and as such she was admitted to the hospital for IV fluid therapy and monitoring of her cardiac and renal functions. She was admitted to the ICU and placed on IV fluid therapy with normal saline at 200 mL/h. Serial serum lithium levels have been ordered. Reason For Visit: LITHIUM TOXICITY Physical Exam Vital Signs: Temp Pulse Resp BP Pulse Ox 97.4 F 68 26 H 122/47 L 99 02/09/18 04:07 02/09/18 06:50 02/09/18 14:00 02/09/18 13:14 02/09/18 14:00 Intake & Output 02/07/18 02/08/18 02/09/18 23:59 23:59 23:59 Intake Total 1800 Output Total 1100 Balance 700 Weight 78.5 kg General appearance: PRESENT: no acute distress, cooperative Head exam: PRESENT: atraumatic, normocephalic Eye exam: PRESENT: conjunctiva pink, EOMI Ear exam: PRESENT: normal external ear exam. ABSENT: drainage Mouth exam: PRESENT: neck supple, tongue midline Neck exam: ABSENT: thyromegaly, tracheal deviation Respiratory exam: PRESENT: clear to auscultation jacey, symmetrical, unlabored Cardiovascular exam: PRESENT: RRR. ABSENT: clicks, gallop, rubs Vascular exam: PRESENT: normal capillary refill. ABSENT: pallor GI/Abdominal exam: PRESENT: normal bowel sounds, soft Rectal exam: PRESENT: deferred Extremities exam: ABSENT: joint swelling, pedal edema Musculoskeletal exam: PRESENT: full ROM, normal inspection Neurological exam: PRESENT: alert, oriented to person, oriented to place, oriented to time, oriented to situation, CN II-XII grossly intact. ABSENT: motor sensory deficit Psychiatric exam: PRESENT: flat affect, normal mood Skin exam: PRESENT: dry, intact, warm Results Laboratory Results: 02/09/18 04:37 02/09/18 14:07 02/09/18 02/09/18 02/09/18 04:37 04:37 04:37 WBC 8.6 RBC 4.10 Hgb 12.3 Hct 36.5 MCV 89 MCH 30.0 MCHC 33.7 RDW 12.9 Plt Count 167 Seg Neutrophils % 47.0 Lymphocytes % 40.7 Monocytes % 7.5 Eosinophils % 4.1 Basophils % 0.7 Absolute Neutrophils 4.0 Absolute Lymphocytes 3.5 Absolute Monocytes 0.6 Absolute Eosinophils 0.4 Absolute Basophils 0.1 Sodium Potassium Chloride Carbon Dioxide Anion Gap BUN Creatinine Est GFR ( Amer) Est GFR (Non-Af Amer) Glucose Lactic Acid 0.6 L Calcium Phosphorus 3.0 Free T4 Free T3 pg/mL 02/09/18 02/09/18 14:07 14:07 WBC RBC Hgb Hct MCV MCH MCHC RDW Plt Count Seg Neutrophils % Lymphocytes % Monocytes % Eosinophils % Basophils % Absolute Neutrophils Absolute Lymphocytes Absolute Monocytes Absolute Eosinophils Absolute Basophils Sodium 144.1 Potassium 4.0 Chloride 112 H Carbon Dioxide 23 Anion Gap 9 BUN 10 Creatinine 1.22 Est GFR ( Amer) 53 L Est GFR (Non-Af Amer) 44 L Glucose 137 H Lactic Acid Calcium 9.2 Phosphorus Free T4 1.49 Free T3 pg/mL 2.54 L Impressions: Chest X-Ray 02/08/18 20:03 IMPRESSION: NO ACUTE RADIOGRAPHIC FINDING IN THE CHEST. Assessment & Plan - Diagnosis (1) [place] toxicity Qualifiers: Encounter type: initial encounter Injury intent: accidental or unintentional Qualified Code(s): T56.891A - Toxic effect of other metals, accidental (unintentional), initial encounter Is this a current diagnosis for this admission?: Yes Plan: Patient is being given supportive and symptomatic treatment for her lithium toxicity. Intravenous fluids are continued. Her lithium level is been noted to be declining from the previous level last night. Serial levels will be obtained to help lithium level is in the therapeutic range or subtherapeutic. Cardiac monitoring and renal function monitoring in the form of urine output and serial metabolic panel evaluations will be performed. (2) Bipolar disorder Is this a current diagnosis for this admission?: Yes Plan: The patient will be continued on all of her current medications with the exception of lithium during her hospital course. [place] will be was restarted at her previous dosage of 450 mg daily at the time of discharge assuming her lithium level is at a therapeutic or subtherapeutic range. 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 She will also be maintained on her regular prehospital medications for control of her diabetes. Hemoglobin A1c and lipid profile will be obtained for evaluation of her chronic therapy. (4) Hypothyroidism Qualifiers: Hypothyroidism type: unspecified Qualified Code(s): E03.9 - Hypothyroidism , unspecified Is this a current diagnosis for this admission?: Yes Plan: Patient will be continued on her outpatient dosage of thyroid replacement hormone in the form of levothyroxine. A TSH free T4 and free T3 will be obtained. - Time Time Spent with patient: 15-24 minutes Medications reviewed and adjusted accordingly: Yes Anticipated discharge: Home
[2018-02-09] MEDS ORDERED: ESTROGENS,CONJUGATED 0.625 MG/1 GM 30 GM TUBE VG SCH (22:00)
[2018-02-09] MEDS: QUETIAPINE FUMARATE 100 MG TABLET PO SCH (22:08)
[2018-02-10 04:08] LABS: HEMATOCRIT 39.4 % (36.0-47.0); HEMOGLOBIN 13.5 g/dL (12.0-15.5); MEAN CORPUSCULAR HEMOGLOBIN 30.6 pg (27.0-33.4); MEAN CORPUSCULAR HGB CONC 34.2 g/dL (32.0-36.0); MEAN CORPUSCULAR VOLUME 89 fl (80-97); PLATELET COUNT 172 10^3/uL (150-450); RED BLOOD COUNT 4.41 10^6/uL (3.72-5.28); RED CELL DISTRIBUTION WIDTH 13.3 % (11.5-14.0); WHITE BLOOD COUNT 8.9 10^3/uL (4.0-10.5)
[2018-02-10 04:21] LABS: ALANINE AMINOTRANSFERASE 51 U/L (9-52); ALBUMIN 3.6 g/dL (3.5-5.0); ALKALINE PHOSPHATASE 115 U/L (38-126); ANION GAP 11 (5-19); ASPARTATE AMINO TRANSFERASE 33 U/L (14-36); BILIRUBIN,DIRECT 0.2 mg/dL (0.0-0.4); BILIRUBIN,TOTAL 0.4 mg/dL (0.2-1.3); BLOOD UREA NITROGEN 8 mg/dL (7-20); CALCIUM 9.3 mg/dL (8.4-10.2); CARBON DIOXIDE 20 mmol/L (22-30); CHLORIDE 113 mmol/L (98-107); GLUCOSE 184 mg/dL (75-110); SODIUM 144.2 mmol/L (137-145); TOTAL PROTEIN 6.8 g/dL (6.3-8.2)
[2018-02-10] MEDS: LEVOTHYROXINE SODIUM 0.025 MG TABLET PO SCH (06:44)
[2018-02-10] MEDS: HEPARIN SOD (PORCINE) 5,000 UNIT/ML 1 ML SYRINGE SUBCUT SCH ×3 (06:48→22:53)
[2018-02-10] MEDS: POTASSI CL 20 MEQ/D5-1/2NS 1L 1,000 ML IV PRN (06:52)
[2018-02-10] MEDS: QUETIAPINE FUMARATE 100 MG TABLET PO SCH (09:13)
[2018-02-10] MEDS: ASPIRIN 81 MG TABLET, ENT COATED PO SCH (09:13)
[2018-02-10] MEDS: METFORMIN HCL 500 MG TABLET PO SCH ×2 (09:13→15:20)
[2018-02-10] MEDS ORDERED: ARIPIPRAZOLE 5 MG TABLET PO SCH (10:00)
[2018-02-10] MEDS: 1/2 NORMAL SALINE 1,000 ML IV PRN (15:19)
--- NOTE | 2018-02-10 15:29 | PDOC PROGRESS REPORT ---
Subjective Progress Note for:: 02/10/18 Subjective:: ELIDA LOOMIS is a 72 year old female who presented to the emergency room with profound generalized weakness. She explained that she feels "incredibly weak all over"and becomes lightheaded when she stands up. She has been having multiple loose watery diarrhea stools with abdominal cramping associated with the stools but not in any other time. She has had no nausea vomiting or abdominal pain and she further denies chest pain dyspnea fever chills and cough. Her appetite has been decreased and she is not drinking as much fluid as she normally would. Recently her oral lithium therapy for bipolar illness was increased from 450 mg daily to 450 mg twice daily. Is been approximately 2 weeks since this conversion was done and the patient has noted the insidious onset of and worsening of her symptoms over that same approximate timeframe. In the emergency room patient was found to have a lithium level of 2.3 with a creatinine of 1.02 and as such she was admitted to the hospital for IV fluid therapy and monitoring of her cardiac and renal functions. She was admitted to the ICU and placed on IV fluid therapy with normal saline at 200 mL/h. Serial serum lithium levels have been ordered. 02/10/2018: Elida was doing fairly well until she was administered Seroquel last night at bedtime. Reported dose had been 200 mg of extended release Seroquel nightly daily however finding the patient somnolent this morning I have further investigated by discussing her case with her psychiatrist and I have determined that though she at one time was taking the 200 mg dose of Seroquel she currently is taking only 25 mg of Seroquel at bedtime as it causes significant sedation in her at higher doses. Therefore the patient's excessive sedation day is most likely iatrogenic due to the Seroquel. I have been able to get her to arouse enough to nod and say a few words but she is so somnolent that she is unable to stay focused on any meaningful discussion to assist in her medical care. Reason For Visit: LITHIUM TOXICITY Physical Exam Vital Signs: Temp Pulse Resp BP Pulse Ox 97.6 F 80 19 127/63 H 95 02/10/18 06:00 02/10/18 06:00 02/10/18 11:00 02/10/18 10:29 02/10/18 11:00 Intake & Output 02/08/18 02/09/18 02/10/18 23:59 23:59 23:59 Intake Total 2300 2000 Output Total 1350 Balance 950 2000 Weight 78.5 kg 79.7 kg General appearance: PRESENT: no acute distress, other - Somnolent, but arousable Head exam: PRESENT: atraumatic, normocephalic Eye exam: PRESENT: conjunctiva pink, EOMI Ear exam: PRESENT: normal external ear exam. ABSENT: drainage Mouth exam: PRESENT: neck supple, tongue midline Neck exam: ABSENT: thyromegaly, tracheal deviation Respiratory exam: PRESENT: clear to auscultation jacey, symmetrical, unlabored Cardiovascular exam: PRESENT: RRR, other - No murmurs clicks gallops or rubs Vascular exam: PRESENT: normal capillary refill. ABSENT: pallor GI/Abdominal exam: PRESENT: normal bowel sounds, soft Rectal exam: PRESENT: deferred Extremities exam: ABSENT: joint swelling, pedal edema Musculoskeletal exam: PRESENT: normal inspection. ABSENT: deformity, dislocation Neurological exam: PRESENT: altered - Excessively somnolent though arousable, CN II-XII grossly intact. ABSENT: motor sensory deficit Psychiatric exam: PRESENT: flat affect, other - Somnolent Skin exam: PRESENT: dry, intact, warm Results Laboratory Results: 02/10/18 03:57 02/10/18 03:57 02/09/18 02/10/18 02/10/18 14:07 03:57 03:57 WBC 8.9 RBC 4.41 Hgb 13.5 Hct 39.4 MCV 89 MCH 30.6 MCHC 34.2 RDW 13.3 Plt Count 172 Sodium Potassium Chloride Carbon Dioxide Anion Gap BUN Creatinine Est GFR ( Amer) Est GFR (Non-Af Amer) Glucose Calcium Magnesium Total Bilirubin AST ALT Alkaline Phosphatase Total Protein Albumin TSH 3.02 Free T4 1.49 Free T3 pg/mL 2.54 L 02/10/18 03:57 WBC RBC Hgb Hct MCV MCH MCHC RDW Plt Count Sodium 144.2 Potassium 4.0 Chloride 113 H Carbon Dioxide 20 L Anion Gap 11 BUN 8 Creatinine 0.88 Est GFR ( Amer) > 60 Est GFR (Non-Af Amer) > 60 Glucose 184 H Calcium 9.3 Magnesium 1.9 Total Bilirubin 0.4 AST 33 ALT 51 Alkaline Phosphatase 115 Total Protein 6.8 Albumin 3.6 TSH Free T4 Free T3 pg/mL Impressions: Chest X-Ray 02/08/18 20:03 IMPRESSION: NO ACUTE RADIOGRAPHIC FINDING IN THE CHEST. Assessment & Plan - Diagnosis (1) [place] toxicity Qualifiers: Encounter type: initial encounter Injury intent: accidental or unintentional Qualified Code(s): T56.891A - Toxic effect of other metals, accidental (unintentional), initial encounter Is this a current diagnosis for this admission?: Yes Plan: Patient is being given supportive and symptomatic treatment for her lithium toxicity. Intravenous fluids are continued. Her lithium level is been noted to be declining from the previous level last night. Serial levels will be obtained to help lithium level is in the therapeutic range or subtherapeutic. Cardiac monitoring and renal function monitoring in the form of urine output and serial metabolic panel evaluations will be performed. 02/10/2018: Patient's lithium level returned to normal yesterday evening. She was doing quite well at that time so her usual medications were restarted according to her home med list. The patient's med list indicates that she takes Seroquel 200 mg of the extended release form nightly which is incorrect her correct dose is 25 mg of the extended release form nightly as patient has significant somnolence with higher dosages. Because of the med list error she was treated with Seroquel 100 mg p.o. twice daily which resulted in significant somnolence. Patient will be maintained with supportive care and discontinuation of Seroquel and Abilify until she returns to her normal state of mental function. (2) Bipolar disorder Is this a current diagnosis for this admission?: Yes Plan: The patient will be continued on all of her current medications with the exception of lithium during her hospital course. [place] will be restarted at her previous dosage of 450 mg daily at the time of discharge assuming her lithium level is at a therapeutic or subtherapeutic range. And her psychiatrist wishes her to be back on lithium. 02/10/2018: After discussion with patient's psychiatrist she will not be placed back on lithium at the time of her discharge. She will follow-up with him for further evaluation and treatment within 1 week of discharge. Additionally I discussed with the psychiatrist her excessive somnolence with Seroquel and he has confirmed that her correct Seroquel dose should be 25 mg of the extended release for nightly and that excessive somnolence was noted as the reason that the patient had to be on such a small dose. At this time the patient's psychiatric medications will all be held until she returns to her normal state of mental function. (3) Diabetes mellitus type II, controlled Qualifiers: Diabetes mellitus penitentiary insulin use: without penitentiary use Diabetes mellitus complication status: without complication Qualified Code(s): E11.9 - Type 2 diabetes mellitus without complications Is this a current diagnosis for this admission?: Yes Plan: Patient will continue on her current diabetic regiment and a heart healthy consistent carbohydrate with no concentrated sweets diet during her hospital course. She will also be maintained on her regular prehospital medications for control of her diabetes. Hemoglobin A1c and lipid profile will be obtained for evaluation of her chronic therapy. 02/10/2018: Patient's hemoglobin A1c was 5.9 which would cause some serious doubt as to whether or not she actually has diabetes mellitus type 2 or needs aggressive therapy for what is more likely a metabolic syndrome or possibly medication elevation of baseline glucose levels. No changes will be made in patient's regiment present time, but when she is more alert I hope to discuss possible changes with her at length. (4) Hypothyroidism Qualifiers: Hypothyroidism type: unspecified Qualified Code(s): E03.9 - Hypothyroidism , unspecified Is this a current diagnosis for this admission?: Yes Plan: Patient will be continued on her outpatient dosage of thyroid replacement hormone in the form of levothyroxine. A TSH free T4 and free T3 will be obtained. 02/10/2018: Patient's thyroid functions indicate essentially a euthyroid state on her current dose of thyroid replacement. No changes to her thyroid medication will be made at this time or at the time of discharge. (5) Adverse drug effect Qualifiers: Encounter type: initial encounter Qualified Code(s): T50.905A - Adverse effect of unspecified drugs, medicaments and biological substances, initial encounter Is this a current diagnosis for this admission?: Yes Plan: The patient's med list indicates that she takes Seroquel 200 mg of the extended release form nightly which is incorrect her correct dose is 25 mg of the extended release form nightly as patient has significant somnolence with higher dosages. Because of the med list error she was treated with Seroquel 100 mg p.o. twice daily which resulted in significant somnolence. The patient will be continued on supportive care until she has regained her normal state of mental function. - Time Time Spent with patient: Less than 15 minutes Medications reviewed and adjusted accordingly: Yes Within: within 48 hours
[2018-02-11 04:17] LABS: HEMATOCRIT 38.7 % (36.0-47.0); HEMOGLOBIN 13.2 g/dL (12.0-15.5); MEAN CORPUSCULAR HEMOGLOBIN 30.3 pg (27.0-33.4); MEAN CORPUSCULAR HGB CONC 34.1 g/dL (32.0-36.0); MEAN CORPUSCULAR VOLUME 89 fl (80-97); PLATELET COUNT 155 10^3/uL (150-450); RED BLOOD COUNT 4.36 10^6/uL (3.72-5.28); RED CELL DISTRIBUTION WIDTH 13.5 % (11.5-14.0); WHITE BLOOD COUNT 7.7 10^3/uL (4.0-10.5)
[2018-02-11 04:52] LABS: ANION GAP 12 (5-19); BLOOD UREA NITROGEN 5 mg/dL (7-20); CALCIUM 9.4 mg/dL (8.4-10.2); CARBON DIOXIDE 20 mmol/L (22-30); CHLORIDE 112 mmol/L (98-107); GLUCOSE 161 mg/dL (75-110); POTASSIUM 3.9 mmol/L (3.6-5.0); SODIUM 144.1 mmol/L (137-145)
[2018-02-11] MEDS: HEPARIN SOD (PORCINE) 5,000 UNIT/ML 1 ML SYRINGE SUBCUT SCH ×3 (06:29→21:45)
[2018-02-11] MEDS: LEVOTHYROXINE SODIUM 0.025 MG TABLET PO SCH (06:30)
[2018-02-11] MEDS: 1/2 NORMAL SALINE 1,000 ML IV PRN ×3 (06:32→22:13)
[2018-02-11] MEDS: METFORMIN HCL 500 MG TABLET PO SCH ×2 (10:19→17:00)
[2018-02-11] MEDS: ASPIRIN 81 MG TABLET, ENT COATED PO SCH (10:19)
--- NOTE | 2018-02-11 14:42 | PDOC PROGRESS REPORT ---
Subjective Progress Note for:: 02/11/18 Subjective:: ELIDA LOOMIS is a 72 year old female who presented to the emergency room with profound generalized weakness. She explained that she feels "incredibly weak all over"and becomes lightheaded when she stands up. She has been having multiple loose watery diarrhea stools with abdominal cramping associated with the stools but not in any other time. She has had no nausea vomiting or abdominal pain and she further denies chest pain dyspnea fever chills and cough. Her appetite has been decreased and she is not drinking as much fluid as she normally would. Recently her oral lithium therapy for bipolar illness was increased from 450 mg daily to 450 mg twice daily. Is been approximately 2 weeks since this conversion was done and the patient has noted the insidious onset of and worsening of her symptoms over that same approximate timeframe. In the emergency room patient was found to have a lithium level of 2.3 with a creatinine of 1.02 and as such she was admitted to the hospital for IV fluid therapy and monitoring of her cardiac and renal functions. She was admitted to the ICU and placed on IV fluid therapy with normal saline at 200 mL/h. Serial serum lithium levels have been ordered. 02/10/2018: Elida was doing fairly well until she was administered Seroquel last night at bedtime. Reported dose had been 200 mg of extended release Seroquel nightly daily however finding the patient somnolent this morning I have further investigated by discussing her case with her psychiatrist and I have determined that though she at one time was taking the 200 mg dose of Seroquel she currently is taking only 25 mg of Seroquel at bedtime as it causes significant sedation in her at higher doses. Therefore the patient's excessive sedation day is most likely iatrogenic due to the Seroquel. I have been able to get her to arouse enough to nod and say a few words but she is so somnolent that she is unable to stay focused on any meaningful discussion to assist in her medical care. 02/11/2018: Elida is doing much better today. She is awake and alert and speaking clearly however she is still quite weak with attempted activity. I have explained her the problem with having determined that she was taking the incorrect dose of Seroquel and giving that to her at a dose higher than she should have received. Fortunately the effects of drug have "worn off" and she is back to her normal state of mentation. She has been eating and drinking well today and is understanding that she will need to do some physical therapy and rehabilitation to recover her strength. This will be initiated by walking with the assistance of nursing staff to the degree that she can here in the ICU. She will also be up to the chair to eat her meals and will encourage her to use the bedside commode or the bathroom with help. She is agreeable to trying to make her best effort at recovery and spitting up her rehabilitation by being an active and eager to participant. Reason For Visit: LITHIUM TOXICITY Physical Exam Vital Signs: Temp Pulse Resp BP Pulse Ox 98.3 F 89 20 129/61 H 95 02/11/18 08:00 02/11/18 08:00 02/11/18 10:00 02/11/18 09:48 02/11/18 10:00 Intake & Output 02/09/18 02/10/18 02/11/18 23:59 23:59 23:59 Intake Total 2300 4550 680 Output Total 1350 1000 4500 Balance 950 3550 -3820 Weight 78.5 kg 79.7 kg 81.6 kg General appearance: PRESENT: no acute distress, cooperative Head exam: PRESENT: atraumatic, normocephalic Eye exam: PRESENT: conjunctiva pink, EOMI Ear exam: PRESENT: normal external ear exam. ABSENT: bleeding, drainage Mouth exam: PRESENT: neck supple, tongue midline Neck exam: ABSENT: thyromegaly, tracheal deviation Respiratory exam: PRESENT: clear to auscultation jacey, symmetrical, unlabored Cardiovascular exam: PRESENT: RRR, other - No murmurs clicks gallops or rubs Vascular exam: PRESENT: normal capillary refill. ABSENT: pallor GI/Abdominal exam: PRESENT: normal bowel sounds, soft Rectal exam: PRESENT: deferred Extremities exam: ABSENT: joint swelling, pedal edema Musculoskeletal exam: ABSENT: deformity, dislocation Neurological exam: PRESENT: alert, oriented to person, oriented to place, oriented to time, oriented to situation, CN II-XII grossly intact. ABSENT: motor sensory deficit - To gross exam Psychiatric exam: PRESENT: appropriate affect, normal mood Skin exam: ABSENT: jaundice, rash, urticaria Results Laboratory Results: 02/11/18 04:00 02/11/18 04:00 02/11/18 02/11/18 04:00 04:00 WBC 7.7 RBC 4.36 Hgb 13.2 Hct 38.7 MCV 89 MCH 30.3 MCHC 34.1 RDW 13.5 Plt Count 155 Sodium 144.1 Potassium 3.9 Chloride 112 H Carbon Dioxide 20 L Anion Gap 12 BUN 5 L Creatinine 0.76 Est GFR ( Amer) > 60 Est GFR (Non-Af Amer) > 60 Glucose 161 H Calcium 9.4 Magnesium 1.8 Impressions: Chest X-Ray 02/08/18 20:03 IMPRESSION: NO ACUTE RADIOGRAPHIC FINDING IN THE CHEST. Assessment & Plan - Diagnosis (1) [place] toxicity Qualifiers: Encounter type: initial encounter Injury intent: accidental or unintentional Qualified Code(s): T56.891A - Toxic effect of other metals, accidental (unintentional), initial encounter Is this a current diagnosis for this admission?: Yes Plan: Patient is being given supportive and symptomatic treatment for her lithium toxicity. Intravenous fluids are continued. Her lithium level is been noted to be declining from the previous level last night. Serial levels will be obtained to help lithium level is in the therapeutic range or subtherapeutic. Cardiac monitoring and renal function monitoring in the form of urine output and serial metabolic panel evaluations will be performed. 02/10/2018: Patient's lithium level returned to normal yesterday evening. She was doing quite well at that time so her usual medications were restarted according to her home med list. The patient's med list indicates that she takes Seroquel 200 mg of the extended release form nightly which is incorrect her correct dose is 25 mg of the extended release form nightly as patient has significant somnolence with higher dosages. Because of the med list error she was treated with Seroquel 100 mg p.o. twice daily which resulted in significant somnolence. Patient will be maintained with supportive care and discontinuation of Seroquel and Abilify until she returns to her normal state of mental function. 02/11/2018: Patient's lithium level is now subtherapeutic at 0.5. She appears to be near will be fully recovered from her lithium toxicity however she has persistent weakness which she attributes to her acute illness. We will continue with symptomatic and supportive cares as well as incrementally increased rehabilitation efforts for the remainder of her hospital course. (2) Bipolar disorder Is this a current diagnosis for this admission?: Yes Plan: The patient will be continued on all of her current medications with the exception of lithium during her hospital course. [place] will be restarted at her previous dosage of 450 mg daily at the time of discharge assuming her lithium level is at a therapeutic or subtherapeutic range. And her psychiatrist wishes her to be back on lithium. 02/10/2018: After discussion with patient's psychiatrist she will not be placed back on lithium at the time of her discharge. She will follow-up with him for further evaluation and treatment within 1 week of discharge. Additionally I discussed with the psychiatrist her excessive somnolence with Seroquel and he has confirmed that her correct Seroquel dose should be 25 mg of the extended release for nightly and that excessive somnolence was noted as the reason that the patient had to be on such a small dose. At this time the patient's psychiatric medications will all be held until she returns to her normal state of mental function. 02/11/2018: I have discussed the medication problems with the patient including the incorrect Seroquel dosage and the lithium toxicity which brought her to the hospital. She understands that she will need to be on something other than lithium in the future and that at the time of discharge she will not be receiving lithium or anything that will replace it in terms of treating her bipolar illness. She also understands that she will not be receiving Seroquel or Abilify at the time of her discharge, and that these will need to be restarted under the direction of her psychiatrist or primary care provider when she is seen for her post hospital follow-up visit. (3) Diabetes mellitus type II, controlled Qualifiers: Diabetes mellitus shelter insulin use: without records technician use Diabetes mellitus complication status: without complication Qualified Code(s): E11.9 - Type 2 diabetes mellitus without complications Is this a current diagnosis for this admission?: Yes Plan: Patient will continue on her current diabetic regiment and a heart healthy consistent carbohydrate with no concentrated sweets diet during her hospital course. She will also be maintained on her regular prehospital medications for control of her diabetes. Hemoglobin A1c and lipid profile will be obtained for evaluation of her chronic therapy. 02/10/2018: Patient's hemoglobin A1c was 5.9 which would cause some serious doubt as to whether or not she actually has diabetes mellitus type 2 or needs aggressive therapy for what is more likely a metabolic syndrome or possibly medication elevation of baseline glucose levels. No changes will be made in patient's regiment present time, but when she is more alert I hope to discuss possible changes with her at length. 02/11/2018: I discussed the patient's hemoglobin A1c result and the fact that she may not actually have diabetes mellitus type 2 but may have some other metabolic disorder that affects her glucose levels or since she is taking Abilify it could be that the increase glucose levels due to the effect of the medication. At this point her diabetic therapy will be discontinued and we will observe her blood glucose over the next 24-48 hours prior to discharge. (4) Hypothyroidism Qualifiers: Hypothyroidism type: unspecified Qualified Code(s): E03.9 - Hypothyroidism , unspecified Is this a current diagnosis for this admission?: Yes Plan: Patient will be continued on her outpatient dosage of thyroid replacement hormone in the form of levothyroxine. A TSH free T4 and free T3 will be obtained. 02/10/2018: Patient's thyroid functions indicate essentially a euthyroid state on her current dose of thyroid replacement. No changes to her thyroid medication will be made at this time or at the time of discharge. (5) Adverse drug effect Qualifiers: Encounter type: initial encounter Qualified Code(s): T50.905A - Adverse effect of unspecified drugs, medicaments and biological substances, initial encounter Is this a current diagnosis for this admission?: Yes Plan: The patient's med list indicates that she takes Seroquel 200 mg of the extended release form nightly which is incorrect her correct dose is 25 mg of the extended release form nightly as patient has significant somnolence with higher dosages. Because of the med list error she was treated with Seroquel 100 mg p.o. twice daily which resulted in significant somnolence. The patient will be continued on supportive care until she has regained her normal state of mental function. 02/11/2018: As previously noted the patient's family and patient herself have been informed of the fact that she received a higher dose of Seroquel due to incorrect information. She understands that stopping the medication allowed for it to clear her system and that she is now back to her more normal self. She also understands that she will not be receiving any further doses of Seroquel or Abilify during her hospitalization as discussed elsewhere. - Time Time Spent with patient: 15-24 minutes Medications reviewed and adjusted accordingly: Yes Anticipated discharge: SNF, Acute Rehab Within: within 48 hours
[2018-02-12 04:52] LABS: HEMATOCRIT 39.6 % (36.0-47.0); HEMOGLOBIN 13.5 g/dL (12.0-15.5); MEAN CORPUSCULAR HEMOGLOBIN 30.3 pg (27.0-33.4); MEAN CORPUSCULAR HGB CONC 34.1 g/dL (32.0-36.0); MEAN CORPUSCULAR VOLUME 89 fl (80-97); PLATELET COUNT 188 10^3/uL (150-450); RED BLOOD COUNT 4.46 10^6/uL (3.72-5.28); RED CELL DISTRIBUTION WIDTH 13.4 % (11.5-14.0); WHITE BLOOD COUNT 13.1 10^3/uL (4.0-10.5)
[2018-02-12 05:18] LABS: ANION GAP 12 (5-19); BLOOD UREA NITROGEN 7 mg/dL (7-20); CALCIUM 9.5 mg/dL (8.4-10.2); CARBON DIOXIDE 24 mmol/L (22-30); CHLORIDE 108 mmol/L (98-107); GLUCOSE 160 mg/dL (75-110); POTASSIUM 3.8 mmol/L (3.6-5.0); SODIUM 144.1 mmol/L (137-145)
[2018-02-12] MEDS: LEVOTHYROXINE SODIUM 0.025 MG TABLET PO SCH (06:22)
[2018-02-12] MEDS: HEPARIN SOD (PORCINE) 5,000 UNIT/ML 1 ML SYRINGE SUBCUT SCH ×3 (06:22→21:25)
[2018-02-12] MEDS: 1/2 NORMAL SALINE 1,000 ML IV PRN ×3 (06:22→23:26)
[2018-02-12] MEDS: ASPIRIN 81 MG TABLET, ENT COATED PO SCH (09:44)
[2018-02-12] MEDS: METFORMIN HCL 500 MG TABLET PO SCH ×2 (09:44→17:48)
--- NOTE | 2018-02-12 13:04 | PDOC PROGRESS REPORT ---
Subjective Progress Note for:: 02/12/18 Subjective:: ELIDA LOOMIS is a 72 year old female who presented to the emergency room with profound generalized weakness. She explained that she feels "incredibly weak all over"and becomes lightheaded when she stands up. She has been having multiple loose watery diarrhea stools with abdominal cramping associated with the stools but not in any other time. She has had no nausea vomiting or abdominal pain and she further denies chest pain dyspnea fever chills and cough. Her appetite has been decreased and she is not drinking as much fluid as she normally would. Recently her oral lithium therapy for bipolar illness was increased from 450 mg daily to 450 mg twice daily. Is been approximately 2 weeks since this conversion was done and the patient has noted the insidious onset of and worsening of her symptoms over that same approximate timeframe. In the emergency room patient was found to have a lithium level of 2.3 with a creatinine of 1.02 and as such she was admitted to the hospital for IV fluid therapy and monitoring of her cardiac and renal functions. She was admitted to the ICU and placed on IV fluid therapy with normal saline at 200 mL/h. Serial serum lithium levels have been ordered. 02/10/2018: Elida was doing fairly well until she was administered Seroquel last night at bedtime. Reported dose had been 200 mg of extended release Seroquel nightly daily however finding the patient somnolent this morning I have further investigated by discussing her case with her psychiatrist and I have determined that though she at one time was taking the 200 mg dose of Seroquel she currently is taking only 25 mg of Seroquel at bedtime as it causes significant sedation in her at higher doses. Therefore the patient's excessive sedation day is most likely iatrogenic due to the Seroquel. I have been able to get her to arouse enough to nod and say a few words but she is so somnolent that she is unable to stay focused on any meaningful discussion to assist in her medical care. 02/11/2018: Elida is doing much better today. She is awake and alert and speaking clearly however she is still quite weak with attempted activity. I have explained her the problem with having determined that she was taking the incorrect dose of Seroquel and giving that to her at a dose higher than she should have received. Fortunately the effects of drug have "worn off" and she is back to her normal state of mentation. She has been eating and drinking well today and is understanding that she will need to do some physical therapy and rehabilitation to recover her strength. This will be initiated by walking with the assistance of nursing staff to the degree that she can here in the ICU. She will also be up to the chair to eat her meals and will encourage her to use the bedside commode or the bathroom with help. She is agreeable to trying to make her best effort at recovery and spitting up her rehabilitation by being an active and eager to participant. 02/12/2018: Elida is up in the chair having finished her breakfast when she is seen on today 's evaluation. She is smiling and is very conversant and much more lucent and focused from a mental standpoint. She is in excellent spirits and shows no sign of depression, anxiety or audra. She has been eating and drinking well and having no problems with elimination. She was noted to have some blood in her urine on one occasion yesterday but this is not been a recurrent problem. She has been ambulating well in her room and in the neal with the assistance of the nurses but she continues to get tired after short distance and needs to return to rest either in her chair or in bed. I have encouraged her to continue pushing the duration and distance that she can ambulate as this will help her to recover more quickly. She has discussed post hospital rehabilitation with the discharge planning service and she will be placed in a custodial facility as soon as a bed is available. Reason For Visit: LITHIUM TOXICITY Physical Exam Vital Signs: Temp Pulse Resp BP Pulse Ox 98.8 F 102 H 16 148/76 H 94 02/12/18 07:47 02/12/18 07:47 02/12/18 07:47 02/12/18 07:47 02/12/18 07:47 Intake & Output 02/10/18 02/11/18 02/12/18 23:59 23:59 23:59 Intake Total 4550 2966 1000 Output Total 1000 4900 200 Balance 0750 -8304 800 Weight 79.7 kg 81.6 kg 78.4 kg General appearance: PRESENT: no acute distress, cooperative Head exam: PRESENT: atraumatic, normocephalic Eye exam: PRESENT: conjunctiva pink, EOMI Ear exam: PRESENT: normal external ear exam. ABSENT: bleeding Mouth exam: PRESENT: neck supple, tongue midline, other - Oral mucosa moist and free of lesions Neck exam: ABSENT: thyromegaly, tracheal deviation Respiratory exam: PRESENT: clear to auscultation jacey, symmetrical, unlabored Cardiovascular exam: PRESENT: RRR. ABSENT: clicks, gallop, rubs Vascular exam: PRESENT: normal capillary refill. ABSENT: pallor GI/Abdominal exam: PRESENT: normal bowel sounds, soft Rectal exam: PRESENT: deferred Extremities exam: ABSENT: joint swelling, pedal edema Musculoskeletal exam: PRESENT: ambulatory. ABSENT: deformity, dislocation Neurological exam: PRESENT: alert, oriented to person, oriented to place, oriented to time, oriented to situation, CN II-XII grossly intact. ABSENT: motor sensory deficit Psychiatric exam: PRESENT: appropriate affect, normal mood Skin exam: PRESENT: dry, intact, warm. ABSENT: jaundice, rash, urticaria Results Laboratory Results: 02/12/18 04:46 02/12/18 04:46 02/12/18 02/12/18 04:46 04:46 WBC 13.1 H RBC 4.46 Hgb 13.5 Hct 39.6 MCV 89 MCH 30.3 MCHC 34.1 RDW 13.4 Plt Count 188 Sodium 144.1 Potassium 3.8 Chloride 108 H Carbon Dioxide 24 Anion Gap 12 BUN 7 Creatinine 0.75 Est GFR ( Amer) > 60 Est GFR (Non-Af Amer) > 60 Glucose 160 H Calcium 9.5 Magnesium 1.8 Impressions: Chest X-Ray 02/08/18 20:03 IMPRESSION: NO ACUTE RADIOGRAPHIC FINDING IN THE CHEST. Assessment & Plan - Diagnosis (1) [place] toxicity Qualifiers: Encounter type: initial encounter Injury intent: accidental or unintentional Qualified Code(s): T56.891A - Toxic effect of other metals, accidental (unintentional), initial encounter Is this a current diagnosis for this admission?: Yes Plan: Patient is being given supportive and symptomatic treatment for her lithium toxicity. Intravenous fluids are continued. Her lithium level is been noted to be declining from the previous level last night. Serial levels will be obtained to help lithium level is in the therapeutic range or subtherapeutic. Cardiac monitoring and renal function monitoring in the form of urine output and serial metabolic panel evaluations will be performed. 02/10/2018: Patient's lithium level returned to normal yesterday evening. She was doing quite well at that time so her usual medications were restarted according to her home med list. The patient's med list indicates that she takes Seroquel 200 mg of the extended release form nightly which is incorrect her correct dose is 25 mg of the extended release form nightly as patient has significant somnolence with higher dosages. Because of the med list error she was treated with Seroquel 100 mg p.o. twice daily which resulted in significant somnolence. Patient will be maintained with supportive care and discontinuation of Seroquel and Abilify until she returns to her normal state of mental function. 02/11/2018: Patient's lithium level is now subtherapeutic at 0.5. She appears to be near will be fully recovered from her lithium toxicity however she has persistent weakness which she attributes to her acute illness. We will continue with symptomatic and supportive cares as well as incrementally increased rehabilitation efforts for the remainder of her hospital course. (2) Bipolar disorder Is this a current diagnosis for this admission?: Yes Plan: The patient will be continued on all of her current medications with the exception of lithium during her hospital course. [place] will be restarted at her previous dosage of 450 mg daily at the time of discharge assuming her lithium level is at a therapeutic or subtherapeutic range. And her psychiatrist wishes her to be back on lithium. 02/10/2018: After discussion with patient's psychiatrist she will not be placed back on lithium at the time of her discharge. She will follow-up with him for further evaluation and treatment within 1 week of discharge. Additionally I discussed with the psychiatrist her excessive somnolence with Seroquel and he has confirmed that her correct Seroquel dose should be 25 mg of the extended release for nightly and that excessive somnolence was noted as the reason that the patient had to be on such a small dose. At this time the patient's psychiatric medications will all be held until she returns to her normal state of mental function. 02/11/2018: I have discussed the medication problems with the patient including the incorrect Seroquel dosage and the lithium toxicity which brought her to the hospital. She understands that she will need to be on something other than lithium in the future and that at the time of discharge she will not be receiving lithium or anything that will replace it in terms of treating her bipolar illness. She also understands that she will not be receiving Seroquel or Abilify at the time of her discharge, and that these will need to be restarted under the direction of her psychiatrist or primary care provider when she is seen for her post hospital follow-up visit. (3) Diabetes mellitus type II, controlled Qualifiers: Diabetes mellitus mcc insulin use: without moth exterminator use Diabetes mellitus complication status: without complication Qualified Code(s): E11.9 - Type 2 diabetes mellitus without complications Is this a current diagnosis for this admission?: Yes Plan: Patient will continue on her current diabetic regiment and a heart healthy consistent carbohydrate with no concentrated sweets diet during her hospital course. She will also be maintained on her regular prehospital medications for control of her diabetes. Hemoglobin A1c and lipid profile will be obtained for evaluation of her chronic therapy. 02/10/2018: Patient's hemoglobin A1c was 5.9 which would cause some serious doubt as to whether or not she actually has diabetes mellitus type 2 or needs aggressive therapy for what is more likely a metabolic syndrome or possibly medication elevation of baseline glucose levels. No changes will be made in patient's regiment present time, but when she is more alert I hope to discuss possible changes with her at length. 02/11/2018: I discussed the patient's hemoglobin A1c result and the fact that she may not actually have diabetes mellitus type 2 but may have some other metabolic disorder that affects her glucose levels or since she is taking Abilify it could be that the increase glucose levels due to the effect of the medication. At this point her diabetic therapy will be discontinued and we will observe her blood glucose over the next 24-48 hours prior to discharge. 02/12/2018: Patient's diabetic medications have been discontinued and her blood sugar ari to the 150-180 range. At this point it would be most prudent to return her back to her previous diabetic therapy regiment which will be replaced today. (4) Hypothyroidism Qualifiers: Hypothyroidism type: unspecified Qualified Code(s): E03.9 - Hypothyroidism , unspecified Is this a current diagnosis for this admission?: Yes Plan: Patient will be continued on her outpatient dosage of thyroid replacement hormone in the form of levothyroxine. A TSH free T4 and free T3 will be obtained. 02/10/2018: Patient's thyroid functions indicate essentially a euthyroid state on her current dose of thyroid replacement. No changes to her thyroid medication will be made at this time or at the time of discharge. (5) Adverse drug effect Qualifiers: Encounter type: initial encounter Qualified Code(s): T50.905A - Adverse effect of unspecified drugs, medicaments and biological substances, initial encounter Is this a current diagnosis for this admission?: Yes Plan: The patient's med list indicates that she takes Seroquel 200 mg of the extended release form nightly which is incorrect her correct dose is 25 mg of the extended release form nightly as patient has significant somnolence with higher dosages. Because of the med list error she was treated with Seroquel 100 mg p.o. twice daily which resulted in significant somnolence. The patient will be continued on supportive care until she has regained her normal state of mental function. 02/11/2018: As previously noted the patient's family and patient herself have been informed of the fact that she received a higher dose of Seroquel due to incorrect information. She understands that stopping the medication allowed for it to clear her system and that she is now back to her more normal self. She also understands that she will not be receiving any further doses of Seroquel or Abilify during her hospitalization as discussed elsewhere. - Time Time Spent with patient: Less than 15 minutes Medications reviewed and adjusted accordingly: Yes Anticipated discharge: SNF Within: when bed available
[2018-02-13] MEDS: LEVOTHYROXINE SODIUM 0.025 MG TABLET PO SCH (06:46)
[2018-02-13] MEDS: HEPARIN SOD (PORCINE) 5,000 UNIT/ML 1 ML SYRINGE SUBCUT SCH ×3 (06:46→21:29)
[2018-02-13] MEDS: 1/2 NORMAL SALINE 1,000 ML IV PRN (06:46)
[2018-02-13] MEDS: ASPIRIN 81 MG TABLET, ENT COATED PO SCH (09:34)
[2018-02-13] MEDS: METOPROLOL SUCCINATE 50 MG TAB.SR.24H PO SCH (09:34)
[2018-02-13] MEDS: METFORMIN HCL 500 MG TABLET PO SCH ×2 (09:34→18:18)
--- NOTE | 2018-02-13 11:37 | PDOC PROGRESS REPORT ---
Subjective Progress Note for:: 02/13/18 Subjective:: ELIDA LOOMIS is a 72 year old female who presented to the emergency room with profound generalized weakness. She explained that she feels "incredibly weak all over"and becomes lightheaded when she stands up. She has been having multiple loose watery diarrhea stools with abdominal cramping associated with the stools but not in any other time. She has had no nausea vomiting or abdominal pain and she further denies chest pain dyspnea fever chills and cough. Her appetite has been decreased and she is not drinking as much fluid as she normally would. Recently her oral lithium therapy for bipolar illness was increased from 450 mg daily to 450 mg twice daily. Is been approximately 2 weeks since this conversion was done and the patient has noted the insidious onset of and worsening of her symptoms over that same approximate timeframe. In the emergency room patient was found to have a lithium level of 2.3 with a creatinine of 1.02 and as such she was admitted to the hospital for IV fluid therapy and monitoring of her cardiac and renal functions. She was admitted to the ICU and placed on IV fluid therapy with normal saline at 200 mL/h. Serial serum lithium levels have been ordered. 02/10/2018: Elida was doing fairly well until she was administered Seroquel last night at bedtime. Reported dose had been 200 mg of extended release Seroquel nightly daily however finding the patient somnolent this morning I have further investigated by discussing her case with her psychiatrist and I have determined that though she at one time was taking the 200 mg dose of Seroquel she currently is taking only 25 mg of Seroquel at bedtime as it causes significant sedation in her at higher doses. Therefore the patient's excessive sedation day is most likely iatrogenic due to the Seroquel. I have been able to get her to arouse enough to nod and say a few words but she is so somnolent that she is unable to stay focused on any meaningful discussion to assist in her medical care. 02/11/2018: Elida is doing much better today. She is awake and alert and speaking clearly however she is still quite weak with attempted activity. I have explained her the problem with having determined that she was taking the incorrect dose of Seroquel and giving that to her at a dose higher than she should have received. Fortunately the effects of drug have "worn off" and she is back to her normal state of mentation. She has been eating and drinking well today and is understanding that she will need to do some physical therapy and rehabilitation to recover her strength. This will be initiated by walking with the assistance of nursing staff to the degree that she can here in the ICU. She will also be up to the chair to eat her meals and will encourage her to use the bedside commode or the bathroom with help. She is agreeable to trying to make her best effort at recovery and spitting up her rehabilitation by being an active and eager to participant. 02/12/2018: Elida is up in the chair having finished her breakfast when she is seen on today 's evaluation. She is smiling and is very conversant and much more lucent and focused from a mental standpoint. She is in excellent spirits and shows no sign of depression, anxiety or audra. She has been eating and drinking well and having no problems with elimination. She was noted to have some blood in her urine on one occasion yesterday but this is not been a recurrent problem. She has been ambulating well in her room and in the neal with the assistance of the nurses but she continues to get tired after short distance and needs to return to rest either in her chair or in bed. I have encouraged her to continue pushing the duration and distance that she can ambulate as this will help her to recover more quickly. She has discussed post hospital rehabilitation with the discharge planning service and she will be placed in a shelter facility as soon as a bed is available. 02/13/2018: But is again up in the chair having finished her breakfast and walking in the neal. She is feeling much better today and feels like she is getting stronger every day. She is tolerating her diet very well and feels like she is in good spirits. She denies depression or dark thoughts and she has had no hallucinations or periods of delirium. Denies any difficulty with elimination. He is looking forward to going to rehabilitation and then subsequently moving into a senior assisted living community. She will be transferred to a shelter facility rehabilitation as soon as a bed is available. Reason For Visit: LITHIUM TOXICITY Physical Exam Vital Signs: Temp Pulse Resp BP Pulse Ox 98.0 F 109 H 17 144/73 H 96 02/13/18 08:00 02/13/18 08:00 02/13/18 08:00 02/13/18 08:00 02/13/18 08:00 Intake & Output 02/11/18 02/12/18 02/13/18 23:59 23:59 23:59 Intake Total 2966 3186 1146 Output Total 4900 1650 725 Balance -1934 1536 421 Weight 81.6 kg 78.4 kg 78.6 kg General appearance: PRESENT: no acute distress, cooperative Head exam: PRESENT: atraumatic, normocephalic Eye exam: PRESENT: conjunctiva pink, EOMI Ear exam: PRESENT: normal external ear exam. ABSENT: drainage Mouth exam: PRESENT: neck supple, other - Oral labia are moist and full with no acute or chronic changes. Neck exam: ABSENT: thyromegaly, tracheal deviation Respiratory exam: PRESENT: clear to auscultation jacey, symmetrical, unlabored Cardiovascular exam: PRESENT: RRR, other - No murmurs clicks gallops or rubs Vascular exam: PRESENT: normal capillary refill. ABSENT: pallor GI/Abdominal exam: PRESENT: normal bowel sounds, soft Rectal exam: PRESENT: deferred Extremities exam: ABSENT: joint swelling, pedal edema Musculoskeletal exam: PRESENT: ambulatory. ABSENT: deformity, dislocation Neurological exam: PRESENT: alert, oriented to person, oriented to place, oriented to time, oriented to situation, CN II-XII grossly intact. ABSENT: motor sensory deficit - [id number] Psychiatric exam: PRESENT: appropriate affect, normal mood Skin exam: PRESENT: dry, intact, warm. ABSENT: jaundice, rash, urticaria Results Laboratory Results: 02/12/18 04:46 02/12/18 04:46 Impressions: Chest X-Ray 02/08/18 20:03 IMPRESSION: NO ACUTE RADIOGRAPHIC FINDING IN THE CHEST. Assessment & Plan - Diagnosis (1) Urania toxicity Qualifiers: Encounter type: initial encounter Injury intent: accidental or unintentional Qualified Code(s): T56.891A - Toxic effect of other metals, accidental (unintentional), initial encounter Is this a current diagnosis for this admission?: Yes Plan: Patient is being given supportive and symptomatic treatment for her lithium toxicity. Intravenous fluids are continued. Her lithium level is been noted to be declining from the previous level last night. Serial levels will be obtained to help lithium level is in the therapeutic range or subtherapeutic. Cardiac monitoring and renal function monitoring in the form of urine output and serial metabolic panel evaluations will be performed. 02/10/2018: Patient's lithium level returned to normal yesterday evening. She was doing quite well at that time so her usual medications were restarted according to her home med list. The patient's med list indicates that she takes Seroquel 200 mg of the extended release form nightly which is incorrect her correct dose is 25 mg of the extended release form nightly as patient has significant somnolence with higher dosages. Because of the med list error she was treated with Seroquel 100 mg p.o. twice daily which resulted in significant somnolence. Patient will be maintained with supportive care and discontinuation of Seroquel and Abilify until she returns to her normal state of mental function. 02/11/2018: Patient's lithium level is now subtherapeutic at 0.5. She appears to be near will be fully recovered from her lithium toxicity however she has persistent weakness which she attributes to her acute illness. We will continue with symptomatic and supportive cares as well as incrementally increased rehabilitation efforts for the remainder of her hospital course. (2) Bipolar disorder Is this a current diagnosis for this admission?: Yes Plan: The patient will be continued on all of her current medications with the exception of lithium during her hospital course. Urania will be restarted at her previous dosage of 450 mg daily at the time of discharge assuming her lithium level is at a therapeutic or subtherapeutic range. And her psychiatrist wishes her to be back on lithium. 02/10/2018: After discussion with patient's psychiatrist she will not be placed back on lithium at the time of her discharge. She will follow-up with him for further evaluation and treatment within 1 week of discharge. Additionally I discussed with the psychiatrist her excessive somnolence with Seroquel and he has confirmed that her correct Seroquel dose should be 25 mg of the extended release for nightly and that excessive somnolence was noted as the reason that the patient had to be on such a small dose. At this time the patient's psychiatric medications will all be held until she returns to her normal state of mental function. 02/11/2018: I have discussed the medication problems with the patient including the incorrect Seroquel dosage and the lithium toxicity which brought her to the hospital. She understands that she will need to be on something other than lithium in the future and that at the time of discharge she will not be receiving lithium or anything that will replace it in terms of treating her bipolar illness. She also understands that she will not be receiving Seroquel or Abilify at the time of her discharge, and that these will need to be restarted under the direction of her psychiatrist or primary care provider when she is seen for her post hospital follow-up visit. (3) Diabetes mellitus type II, controlled Qualifiers: Diabetes mellitus custodial insulin use: without salvage determiner use Diabetes mellitus complication status: without complication Qualified Code(s): E11.9 - Type 2 diabetes mellitus without complications Is this a current diagnosis for this admission?: Yes Plan: Patient will continue on her current diabetic regiment and a heart healthy consistent carbohydrate with no concentrated sweets diet during her hospital course. She will also be maintained on her regular prehospital medications for control of her diabetes. Hemoglobin A1c and lipid profile will be obtained for evaluation of her chronic therapy. 02/10/2018: Patient's hemoglobin A1c was 5.9 which would cause some serious doubt as to whether or not she actually has diabetes mellitus type 2 or needs aggressive therapy for what is more likely a metabolic syndrome or possibly medication elevation of baseline glucose levels. No changes will be made in patient's regiment present time, but when she is more alert I hope to discuss possible changes with her at length. 02/11/2018: I discussed the patient's hemoglobin A1c result and the fact that she may not actually have diabetes mellitus type 2 but may have some other metabolic disorder that affects her glucose levels or since she is taking Abilify it could be that the increase glucose levels due to the effect of the medication. At this point her diabetic therapy will be discontinued and we will observe her blood glucose over the next 24-48 hours prior to discharge. 02/12/2018: Patient's diabetic medications have been discontinued and her blood sugar ari to the 150-180 range. At this point it would be most prudent to return her back to her previous diabetic therapy regiment which will be replaced today. (4) Hypothyroidism Qualifiers: Hypothyroidism type: unspecified Qualified Code(s): E03.9 - Hypothyroidism , unspecified Is this a current diagnosis for this admission?: Yes Plan: Patient will be continued on her outpatient dosage of thyroid replacement hormone in the form of levothyroxine. A TSH free T4 and free T3 will be obtained. 02/10/2018: Patient's thyroid functions indicate essentially a euthyroid state on her current dose of thyroid replacement. No changes to her thyroid medication will be made at this time or at the time of discharge. (5) Adverse drug effect Qualifiers: Encounter type: initial encounter Qualified Code(s): T50.905A - Adverse effect of unspecified drugs, medicaments and biological substances, initial encounter Is this a current diagnosis for this admission?: Yes Plan: The patient's med list indicates that she takes Seroquel 200 mg of the extended release form nightly which is incorrect her correct dose is 25 mg of the extended release form nightly as patient has significant somnolence with higher dosages. Because of the med list error she was treated with Seroquel 100 mg p.o. twice daily which resulted in significant somnolence. The patient will be continued on supportive care until she has regained her normal state of mental function. 02/11/2018: As previously noted the patient's family and patient herself have been informed of the fact that she received a higher dose of Seroquel due to incorrect information. She understands that stopping the medication allowed for it to clear her system and that she is now back to her more normal self. She also understands that she will not be receiving any further doses of Seroquel or Abilify during her hospitalization as discussed elsewhere. (6) Hypertension Qualifiers: Hypertension type: essential hypertension Qualified Code(s): I10 - Essential (primary) hypertension Is this a current diagnosis for this admission?: Yes Plan: Patient does not have a history of hypertension in the past to the best of her knowledge. She has been mildly hypertensive and tachycardic during her stay since recovering from her lithium toxicity and excessive sedation caused by Seroquel. She appears to be very calm and relaxed and I am not strongly suspicious of a strong psychiatric component in causation of her hypertension and mild tachycardia. I have discussed this matter with the patient in depth and she is in agreement to try a low-dose of metoprolol XL 50 mg once daily. This should be continued at the time of discharge unless there is some adverse reaction to it or it proves to be a higher dose than that which may be required. - Time Time Spent with patient: 15-24 minutes Medications reviewed and adjusted accordingly: Yes Anticipated discharge: SNF Within: when bed available
[2018-02-14] MEDS: LEVOTHYROXINE SODIUM 0.025 MG TABLET PO SCH (06:36)
[2018-02-14] MEDS: HEPARIN SOD (PORCINE) 5,000 UNIT/ML 1 ML SYRINGE SUBCUT SCH ×2 (06:36→15:01)
[2018-02-14] MEDS: METFORMIN HCL 500 MG TABLET PO SCH (09:13)
[2018-02-14] MEDS: ASPIRIN 81 MG TABLET, ENT COATED PO SCH (09:13)
[2018-02-14] MEDS: METOPROLOL SUCCINATE 50 MG TAB.SR.24H PO SCH (09:14)
[2018-02-14 15:26] VITALS: BP 143/69
--- NOTE | 2018-02-14 17:24 | PDOC DISCHARGE SUMMARY ---
General - Admit/Disc Date/PCP Admission Date/Primary Care Provider: 02/08/18 22:43 Discharge Date: 02/14/18 - Discharge Diagnosis (1) Cotati toxicity Is this a current diagnosis for this admission?: Yes (2) Bipolar disorder Is this a current diagnosis for this admission?: Yes - Additional Information Resuscitation Status: Full Code Prescriptions: Metoprolol Succinate [Toprol Xl 50 mg Tab.sr] 50 mg PO DAILY #30 tab.sr.24h Quetiapine Fumarate [Seroquel 25 mg Tablet] 25 mg PO QHS #30 tablet Home Medications: Aripiprazole [Abilify 5 mg Tablet] 5 mg PO DAILY 02/09/18 Aspirin [Adult Low Dose Aspirin EC] 81 mg PO DAILY 02/09/18 Cyanocobalamin (Vitamin B-12) [Vitamin B-12 Inj 1000 Mcg/1 ml Vial] 1,000 mcg IM [id number] 02/09/18 Estrogens,Conjugated [Premarin 0.625 mg Tablet] 0.625 mg PO DAILY 02/09/18 Levothyroxine Sodium [Synthroid 0.025 mg Tablet] 0.0375 mg PO Q6AM 02/09/18 Metformin HCl [Glucophage XR 500 mg Tablet] 500 mg PO DAILY 02/09/18 Metoprolol Succinate [Toprol Xl 50 mg Tab.sr] 50 mg PO DAILY #30 tab.sr.24h Quetiapine Fumarate [Seroquel 25 mg Tablet] 25 mg PO QHS #30 tablet 02/14/18 History of Present Illness History of Present Illness: Admitting hospitalist's H&P: CASSANDRA LOOMIS is a 72 year old female history of bipolar disorder that comes to the emergency department for chief complaint of weakness. She states that throughout the day she has felt incredibly weak all over, she states that she stands up she feels somewhat dizzy with nonbloody diarrhea. She denies chest pain, shortness of breath, passing out, fever, nausea or vomiting or any other locations of pain. She states she has still been eating and drinking but less than her usual. She comes from home, has home health at home. Her lithium was recently increased from 450 mg once a day to 450 mg twice a day 2 weeks ago, patient is compliant with her medications. When I went to see the patient's she is extremely weak, even has difficulties to open her eyes. Tells me she is extremely tired and she cannot talk now. Her baseline is active and ambulates with no difficulties. In the emergency department her lithium levels were 2.3. ED attending is spoke to el control Nataliya, recommended supportive measures, close monitoring of her vital signs and cardiac monitoring. Patient started IV fluids with normal saline at 200 cc/ h. Renal function at baseline with a creatinine of 1.02 Hospital Course Hospital Course: Ms. Loomis is a 72 yr old female with bipolar disorder who was recently started on Cotati and presented with weakness and dizziness. She was admitted for Cotati toxicity. Poison control recommended closer monitoring and hence she was initially admitted to the ICU. Patient was managed with supportive measures including IV fluids and cardiac monitoring. She was initially seen by PT and was initially deemed weak to participate hence preceding hospitalist initially recommended possible SNF/ rehab placement. However, she did improve significantly and was able to ambulate well upon re-evaluation by PT hence was deemed fit to go home with home health. Patient apparently had an episode of lethargy after she got 200 mg of Seroquel. Preceding hospitalist did discuss with patient's psychiatrist and verified that patient is only on 25 mg of seroquel at night. Patient's psychiatrist also recommended holding off on Cotati upon discharge. She was made an appointment with psych next week to discuss changes with her psych medications. Patient does not have any delusions or hallucinations. She denies any suicidal or homicidal ideations and appears to have good judgement. Physical Exam Vital Signs: Temp Pulse Resp BP Pulse Ox 97.7 F 67 14 126/69 H 97 02/14/18 08:26 02/14/18 08:26 02/14/18 08:26 02/14/18 08:26 02/14/18 08:26 Intake & Output 02/13/18 02/14/18 02/15/18 06:59 06:59 06:59 Intake Total 3103 1184 740 Output Total 2375 1750 1200 Balance 728 562 -692 Weight 173 lb 4.533 oz 171 lb 11.841 oz General appearance: PRESENT: no acute distress, well-developed, well-nourished Head exam: PRESENT: atraumatic, normocephalic Eye exam: PRESENT: conjunctiva pink, EOMI, PERRLA. ABSENT: scleral icterus Ear exam: PRESENT: normal external ear exam Mouth exam: PRESENT: moist, tongue midline Neck exam: ABSENT: carotid bruit, JVD, lymphadenopathy, thyromegaly Respiratory exam: PRESENT: clear to auscultation jacey. ABSENT: rales, rhonchi, wheezes Cardiovascular exam: PRESENT: RRR. ABSENT: diastolic murmur, rubs, systolic murmur Pulses: PRESENT: normal dorsalis pedis pul Vascular exam: PRESENT: normal capillary refill GI/Abdominal exam: PRESENT: normal bowel sounds, soft. ABSENT: distended, guarding, mass, organolmegaly, rebound, tenderness Rectal exam: PRESENT: deferred Extremities exam: PRESENT: full ROM. ABSENT: calf tenderness, clubbing, pedal edema Neurological exam: PRESENT: alert, awake, oriented to person, oriented to place , oriented to time, oriented to situation, CN II-XII grossly intact. ABSENT: motor sensory deficit Results Laboratory Results: 02/12/18 04:46 02/12/18 04:46 Impressions: Chest X-Ray 02/08/18 20:03 IMPRESSION: NO ACUTE RADIOGRAPHIC FINDING IN THE CHEST. Qualifiers - * PATIENT BEING DISCHARGED WITH ANY OF THE FOLLOWING DIAGNOSIS: No
== END 2018-02-14 16:30 | disposition home health service (06) | DRG 948 ==
LOC: ER 19:20 → EH 22:43 → 3W 02-09 00:30 → ICU 02-09 06:10
PROVIDERS: ADMIT Internal Medicine; ATTEND Internal Medicine
DX: R53.1 Weakness (principal); T43.595A Adverse effect of other antipsychotics and neuroleptics, initial encounter; E11.9 Type 2 diabetes mellitus without complications; I10 Essential (primary) hypertension; E03.9 Hypothyroidism, unspecified; D50.9 Iron deficiency anemia, unspecified; J45.909 Unspecified asthma, uncomplicated; F31.9 Bipolar disorder, unspecified; Y92.098 Other place in other non-institutional residence as the place of occurrence of the external cause; Z60.2 Problems related to living alone
CPT/HCPCS: 36415; 51701; 71045; 80048; 80053; 80178; 81001; 82550; 82962; 83036; 83605; 83735; 84100; 84439; 84443; 84481; 84484; 85025; 85027; 85610; 85730; 93005; 93010; 96360; 99291; G8978-GP; G8979-GP; J1644; J3480; J3490; J7030; S0164

== ENCOUNTER 2018-03-22 09:22 | Inpatient (IN) | payer MEDICARE, BC ==
[2018-03-22] MEDS ORDERED: NALOXONE HCL INJ/PF 0.4 MG/1 ML SDV IV ONE (09:40)
--- NOTE | 2018-03-22 09:46 | ER Document Report ---
ED General - General Mode of Arrival: Medic Information source: Emergency Med Personnel TRAVEL OUTSIDE OF THE [place] IN LAST 30 DAYS: No <LAURA EDDY - Last Filed: 03/22/18 15:12> <HAWA VAIL - Last Filed: 03/22/18 18:23> - General Stated Complaint: POSSIBLE OVERDOSE Time Seen by Provider: 03/22/18 09:29 Notes: Patient is a 73 year old female presenting to the emergency department via EMS for possible overdose. Nursing staff states the patient was found this morning by home health aide unresponsive. Home health aide reports she found 2 empty b ottles of Gabbapentin beside the patient. She reports the patient having a lockbox with her medications due to a history of suicidal attempts. According to records, the patient is not currently prescribed Gabbapentin. No further history was obtained due to patients mental status. Of significance, patient was previously seen and admitted to this hospital for lithium toxicity. (LAURA EDDY) This 73-year-old female patient is brought from home for being unresponsive to day. The history is quite confusing but according to the home health person, when she arrived at the home this morning the patient was somewhat lethargic in the semi-arousable. There was a suicide note found. The patient did relate her intent to commit suicide. She also told her home health aide that she had signed a DNR form on her most recent admission and wanted to be sure that was her known wishes. Patient's medications are normally kept in a locked box so she cannot access them, as she does have a history of suicidal behavior. There were 3 old gabapentin bottles found that were empty and is unknown if these were the medication she may have taken. The suicide note was not brought to the emergency room with the patient, and the empty pill bottles were not brought. Her regular medications were also not brought except for a bottle of Premarin and 2 Combivent inhalers. The patient's son came in this afternoon, the patient is more awake and looking around and talking some now. He relates that he has a long history of suicide attempts. He did evacuate her for [place], and when he took her back home he found medications strong in all about the home. Most of these were his father's cancer medications. He reports he bagged up a large amount of medications and essentially gathered everything he could find that did not belong to her. He took these to a local drugstore for disposition. He reports that he did visit with her last night for a while and they have been discussing placement as she does not feel she can safely live by herself. He believes this may be the trigger for her suicide attempt, as she does not want to go to any sort of long-term facility. He states he does not have a fernandes to her home which was locked up by the law enforcement director, but he will try to find a way to get inside and carefully go through the entire home looking for any other stature head and medications. He will also meet with the psychiatry workers tomorrow to discuss getting himself pointed by the court says her guardian and having her declared legally incompetent. He has identified an arrangement where she can stay in a facility in [place] not far from her psychiatrist's office and her other physicians. (HAWA VAIL) - Related Data Allergies/Adverse Reactions: divalproex sodium [From Depakote] Allergy (Unknown, Verified 01/08/16 12:18) risperidone [From Risperdal] Allergy (Unknown, Verified 01/08/16 12:18) topiramate [From Topamax] Allergy (Unknown, Verified 01/08/16 12:18) Past Medical History - General Information source: Emergency Med Personnel - Social History Smoking Status: Unknown if Ever Smoked Family History: Reviewed & Not Pertinent Pulmonary Medical History: Reports: Hx Asthma - ALLERGY INDUCED SOB, Hx COPD Endocrine Medical History: Reports: Hx Diabetes Mellitus Type 2 Psychiatric Medical History: Reports: Hx Bipolar Disorder Past Surgical History: Reports: Hx Hysterectomy <LAURA EDDY - Last Filed: 03/22/18 15:12> Review of Systems - Review of Systems -: Yes ROS unobtainable due to patient's medical condition <LAURA EDDY - Last Filed: 03/22/18 15:12> Physical Exam <LAURA EDDY - Last Filed: 03/22/18 15:12> - Vital signs Vitals: Temp 97.4 F 03/22/18 09:30 - Notes Notes: GENERAL: Obtunded. Will minimally respond to noxious stimuli. HEAD: Normocephalic. Abrasions and contusion to the right side of the forehead, appears to be new. EYES: Pupils equal, round, and reactive to light, reflective lens bilaterally, consistent with history of cataracts surgery. Extraocular movements intact. ENT: Oral mucosa moist, tongue midline. Gag reflex intact. NECK: Full range of motion. Supple. Trachea midline. LUNGS: Clear to auscultation bilaterally, no wheezes, rales, or rhonchi. No respiratory distress. HEART: Regular rate and rhythm. No murmurs, gallops, or rubs. ABDOMEN: Soft, non-tender. Non-distended. Bowel sounds present in all 4 quadra nts. EXTREMITIES: Moves all 4 extremities spontaneously. No edema, radial and dorsalis pedis pulses 2/4 bilaterally. No cyanosis. NEUROLOGICAL: Obtunded. Minimal gag reflex. Opened eyes on one occasion in response to noxious stimuli. Grunted when calling name. Biceps and patellar DTRs 2+ bilaterally. PSYCH: Obtunded. SKIN: Warm, dry. (LAURA EDDY) Course - Laboratory Result Diagrams: 03/22/18 10:47 03/22/18 10:47 <LAURA EDDY - Last Filed: 03/22/18 15:12> - Laboratory Result Diagrams: 03/22/18 10:47 03/22/18 10:47 - Diagnostic Test Radiology reviewed: Image reviewed, Reports reviewed - CT scan of the head shows chronic white matter disease, cervical spine does not show acute injury. - EKG Interpretation by [facility] EKG shows normal: Sinus rhythm, [place], Intervals, QRS Complexes, ST-T Waves Rate: Normal - 82 Rhythm: NSR - Consults Dr. Barajas Time consulted: 15:10 Consulted provider: will come to ER <HAWA VAIL - Last Filed: 03/22/18 18:23> - Re-evaluation Re-evalutation: 03/22/18 09:56 The patient was given 0.4 mg of Narcan to see if it made a difference with her obtunded mental status, it did not. She will go for CT scans and then be re evaluated. Her vital signs remained stable. 03/22/18 15:13 At this time the patient is slightly arousable and did state that she did overdose on gabapentin this morning. (HAWA VAIL) - Vital Signs Vital signs: Temp Pulse Resp BP Pulse Ox 97.4 F 23 H 119/51 L 97 03/22/18 09:30 03/22/18 18:00 03/22/18 17:01 03/22/18 18:00 - Laboratory Laboratory results interpreted by me: 03/22/18 10:47 Potassium 5.9 H Chloride 110 H Est GFR (Non-Af Amer) 52 L Glucose 143 H Calcium 10.3 H AST 49 H ALT 60 H Alkaline Phosphatase 132 H Total Protein 8.6 H Salicylates < 1.0 L Acetaminophen < 10 L Vincent 0.4 L Critical Care Note - Critical Care Note Total time excluding time spent on procedures (mins): 45 <HAWA VAIL - Last Filed: 03/22/18 18:23> Discharge <LAURA EDDY - Last Filed: 03/22/18 15:12> - Discharge Admitting Provider: Hospitalist Unit Admitted: IMCU <HAWA VAIL - Last Filed: 03/22/18 18:23> - Discharge Clinical Impression: Suicidal ideation, Obtunded Overdose Qualifiers: Encounter type: initial encounter Injury intent: intentional self-harm Qualified Code(s): T50.902A - Poisoning by unspecified drugs, medicaments and biological substances, intentional self-harm, initial encounter Gabapentin overdose Qualifiers: Encounter type: initial encounter Injury intent: intentional self-harm Qualified Code(s): T42.6X2A - Poisoning by other antiepileptic and sedative- hypnotic drugs, intentional self-harm, initial encounter Condition: Stable Disposition: ADMITTED INPATIENT Scribe Attestation: 03/22/18 09:57 I personally performed the services described in the documentation, reviewed and edited the documentation which was dictated to the scribe in my presence, and it accurately records my words and actions. (HAWA VAIL) Scribe Documentation - Scribe Written by Amanda:: Amanda Galicia, 03/22/2018 09:54 acting as scribe for :: Murali <LAURA EDDY - Last Filed: 03/22/18 15:12>
--- NOTE | 2018-03-22 10:42 | RADIOLOGY REPORT (SQ) ---
EXAM DESCRIPTION: CT HEAD WITHOUT COMPLETED DATE/TIME: 03/22/2018 10:14 am REASON FOR STUDY: overdose,fall, R forehead contusion COMPARISON: CT brain 07/23/2010 TECHNIQUE: Axial images acquired through the brain without intravenous contrast. Images reviewed wi th bone, brain and subdural windows. Additional sagittal and coronal reconstructions were generated. Images stored on PACS. All CT scanners at this facility use dose modulation, iterative reconstruction, and/or weight based d osing when appropriate to reduce radiation dose to as low as reasonably achievable (ALARA). [facility]: Dose Right [facility]: CareDose [facility]: Dose Right [facility]: Teradose 4D [facility]: [place] [place] RADIATION DOSE: CT Rad equipment meets quality standard of care and radiation dose reduction techniq ues were employed. CTDIvol: 53.2 mGy. DLP: 1070 mGy-cm. mGy. LIMITATIONS: None. FINDINGS: VENTRICLES: Normal size and contour. CEREBRUM: No masses. No hemorrhage. No midline shift. No evidence for acute infarction. Normal gra y/white matter differentiation. Age-appropriate chronic small vessel ischemic change in the bifronta l and biparietal white matter. CEREBELLUM: No masses. No hemorrhage. No alteration of density. No evidence for acute infarction. EXTRAAXIAL SPACES: No fluid collections. No masses. ORBITS AND GLOBE: No intra- or extraconal masses. Post bilateral cataract surgery. CALVARIUM: No fracture. PARANASAL SINUSES: No fluid or mucosal thickening. SOFT TISSUES: No mass or hematoma. OTHER: No other significant finding. IMPRESSION: Chronic white matter disease. No acute findings EVIDENCE OF ACUTE STROKE: NO. COMMENT: Quality ID # [id number]: Final reports with documentation of one or more dose reduction techniques (e.g., Automated exposure control, adjustment of the mA and/or kV according to patient size, use of iterative reconstruction technique) TECHNICAL DOCUMENTATION: JOB ID: [id number] [employer]- All Rights Reserved Reading location - IP/workstation name: [email or web address]
--- NOTE | 2018-03-22 10:45 | RADIOLOGY REPORT (SQ) ---
EXAM DESCRIPTION: CT CERVICAL SPINE WITHOUT COMPLETED DATE/TIME: 03/22/2018 10:14 am REASON FOR STUDY: overdose,fall, R forehead contusion COMPARISON: None. TECHNIQUE: Axial images acquired through the cervical spine without intravenous contrast. Images re viewed with lung, soft tissue and bone windows. Reconstructed coronal and sagittal MPR images review ed. Images stored on PACS. All CT scanners at this facility use dose modulation, iterative reconstruction, and/or weight based d osing when appropriate to reduce radiation dose to as low as reasonably achievable (ALARA). [facility]: Dose Right [facility]: CareDose [facility]: Dose Right [facility]: Teradose 4D [facility]: [facility] RADIATION DOSE: CT Rad equipment meets quality standard of care and radiation dose reduction techniq ues were employed. CTDIvol: 19.1 mGy. DLP: 379 mGy-cm. mGy. LIMITATIONS: None. FINDINGS: ALIGNMENT: Anatomic. MINERALIZATION: Normal. VERTEBRAL BODIES: No fractures or dislocation. DISCS: Multilevel mild degenerative disc changes with disc space loss of height and posterior disc bu lging. Mild left foraminal narrowing at C3-4, high-grade right foraminal narrowing at C4-5 and C5-6. FACETS, LATERAL MASSES, POSTERIOR ELEMENTS: No fractures. No dislocation. No acute findings. HARDWARE: None in the spine. VISUALIZED RIBS: No fractures. LUNG APICES AND SOFT TISSUES: No significant or acute findings. OTHER: No other significant finding. IMPRESSION: No acute findings TECHNICAL DOCUMENTATION: JOB ID: [id number] Quality ID # [id number]: Final reports with documentation of one or more dose reduction techniques (e.g., Au tomated exposure control, adjustment of the mA and/or kV according to patient size, use of iterative reconstruction technique) 2010 [employer]- All Rights Reserved Reading location - IP/workstation name: [email or web address]
[2018-03-22 10:57] LABS: ABSOLUTE BASOPHILS # (AUTO) 0.1 10^3/uL (0.0-0.2); ABSOLUTE EOSINOPHILS # (AUTO) 0.3 10^3/uL (0.0-0.6); ABSOLUTE LYMPHOCYTES (AUTO) 4.1 10^3/uL (0.5-4.7); ABSOLUTE MONOCYTES (AUTO) 0.6 10^3/uL (0.1-1.4); ABSOLUTE NEUT (AUTO) 5.4 10^3/uL (1.7-8.2); BASOPHILS % (AUTO) 0.9 % (0-2); HEMATOCRIT 42.3 % (36.0-47.0); HEMOGLOBIN 14.4 g/dL (12.0-15.5); MEAN CORPUSCULAR HEMOGLOBIN 30.6 pg (27.0-33.4); MEAN CORPUSCULAR HGB CONC 33.9 g/dL (32.0-36.0); MEAN CORPUSCULAR VOLUME 90 fl (80-97); MONOCYTES % (AUTO) 5.3 % (3-13); PLATELET COUNT 233 10^3/uL (150-450); RED CELL DISTRIBUTION WIDTH 13.8 % (11.5-14.0); SEGMENTED NEUTROPHILS % (AUTO) 51.8 % (42-78); TOTAL CELLS COUNTED % (AUTO) 100 %; WHITE BLOOD COUNT 10.5 10^3/uL (4.0-10.5)
[2018-03-22 11:03] LABS: APPEARANCE,URINE CLEAR; BILIRUBIN,URINE NEGATIVE (NEGATIVE); COLOR,URINE STRAW; GLUCOSE, URINE NEGATIVE (NEGATIVE); KETONES,URINE NEGATIVE (NEGATIVE); LEUKOCYTE ESTERASE,URINE NEGATIVE (NEGATIVE); NITRITE,URINE NEGATIVE (NEGATIVE); PROTEIN,URINE NEGATIVE (NEGATIVE); URINE SPECIFIC GRAVITY 1.006; UROBILINOGEN,URINE NEGATIVE mg/dL (<2.0)
[2018-03-22 11:18] LABS: URINE AMPHETAMINES SCREEN NEGATIVE; URINE BARBITURATES SCREEN NEGATIVE; URINE BENZODIAZEPINES SCREEN NEGATIVE; URINE COCAINE SCREEN NEGATIVE; URINE MARIJUANA (THC) SCREEN NEGATIVE; URINE METHADONE SCREEN NEGATIVE; URINE PHENCYCLIDINE SCREEN NEGATIVE
[2018-03-22 11:19] LABS: ALANINE AMINOTRANSFERASE 60 U/L (9-52); ALBUMIN 4.6 g/dL (3.5-5.0); ALKALINE PHOSPHATASE 132 U/L (38-126); ANION GAP 7 (5-19); ASPARTATE AMINO TRANSFERASE 49 U/L (14-36); BILIRUBIN,DIRECT 0.3 mg/dL (0.0-0.4); BILIRUBIN,TOTAL 0.6 mg/dL (0.2-1.3); BLOOD UREA NITROGEN 16 mg/dL (7-20); CALCIUM 10.3 mg/dL (8.4-10.2); CARBON DIOXIDE 27 mmol/L (22-30); CHLORIDE 110 mmol/L (98-107); GLUCOSE 143 mg/dL (75-110); LITHIUM 0.4 mEq/L (0.6-1.2); POTASSIUM 5.9 mmol/L (3.6-5.0); SODIUM 144.4 mmol/L (137-145); TOTAL PROTEIN 8.6 g/dL (6.3-8.2)
[2018-03-22 11:20] LABS: ACETAMINOPHEN < 10 ug/mL (10-30); ALCOHOL < 10 mg/dL (NONE DETECTED); SALICYLATE < 1.0 mg/dL (2.0-20.0)
--- NOTE | 2018-03-22 12:07 | RADIOLOGY REPORT (SQ) ---
EXAM DESCRIPTION: CHEST SINGLE VIEW COMPLETED DATE/TIME: 03/22/2018 11:31 am REASON FOR STUDY: Unresponsive COMPARISON: CHEST FILMS 02/08/2018, 08/03/2010 EXAM PARAMETERS: NUMBER OF VIEWS: One view. TECHNIQUE: Single frontal radiographic view of the chest acquired. RADIATION DOSE: NA LIMITATIONS: None. FINDINGS: LUNGS AND PLEURA: Patchy airspace disease left lung base, atelectasis versus pneumonia. Lungs are otherwise well inflated and clear. No pleural effusion. No pneumothorax. MEDIASTINUM AND HILAR STRUCTURES: No masses. Contour normal. HEART AND VASCULAR STRUCTURES: Heart normal in size. Normal vasculature. BONES: No acute findings. HARDWARE: None in the chest. OTHER: No other significant finding. IMPRESSION: Left basilar airspace disease atelectasis versus pneumonia TECHNICAL DOCUMENTATION: JOB ID: [id number] [employer]- All Rights Reserved Reading location - IP/workstation name: [email or web address]
--- NOTE | 2018-03-22 13:11 | EKG REPORT ---
SEVERITY:- NORMAL ECG - SINUS RHYTHM : Confirmed by: Erma Berger 22-Mar-2018 13:10:52
--- NOTE | 2018-03-22 15:56 | PSYCHOLOGICAL NOTE ---
Psych Note - Psych Note Date seen by psych provider: 03/22/18 Time seen by psych provider: 11:00 Psych Note: Reason for Consult: intentional overdose 73 year old female who presents to the ED after intentional overdose. EMS reports that home health nurse found patient unresponsive at 08:00 this am. Patient is unable to engage with evaluation at this time. Deputy Moore reported the patient verbally told the Draper that she intentionally overdosed and wrote a suicide note. Two empty bottles of gabapentin was found in a guest bathroom. When the patient's son was contacted, he disclosed the patient was trying to give him a bunch of items yesterday when they were together for [employer]. He reported to the Draper that the last time she did this was in 2010. The patient's son is currently in [place]. Please contact behavioral health when patient is alert to conduct evaluation for probable IVC status.
[2018-03-22] MEDS ORDERED: IPRATROPIUM/ALBUTEROL 0.5-2.5 MG/3 ML AMPUL NEB PRN (17:01)
[2018-03-22] MEDS ORDERED: DEXTROSE 40% GEL 15 GM TUBE PO PRN ×2 (17:01)
[2018-03-22] MEDS ORDERED: DEXTROSE 50%-WATER 25 GM/50 ML DISP.SYRIN IV PRN ×2 (17:01)
[2018-03-22] MEDS ORDERED: GLUCAGON,HUMAN RECOMB 1 MG INJ SUBCUT PRN (17:01)
[2018-03-22] MEDS ORDERED: SODIUM POLYSTYRENE SULFONATE 15 GM/60 ML PO ONE (17:11)
[2018-03-22] MEDS ORDERED: FUROSEMIDE INJ/PF 20 MG/2 ML SDV IV ONE (17:14)
[2018-03-22] MEDS ORDERED: MELATONIN 3 MG TABLET PO PRN (17:19)
--- NOTE | 2018-03-22 17:35 | PDOC H&P ---
History of Present Illness Admission Date/PCP: 03/22/18 15:32 Patient complains of: here for suicide attempt via overdose on gabapentin History of Present Illness: CASSANDRA LOOMIS is a 73 year old female with past medical hx of bipolar, hypothyroid, suicide attempts. Limited information is available at this time as the patient is still sleepy from her apparent overdose attempt with gabapentin. She was last seen approx 730pm last night by her son and felt to be doing fine. She has a nurse that checks on her daily that became suspicious when patient did not answer the telephone this am. she was found with empty bottles of gabapentin in the residence, and brought to the ER by EMS. Patient does arouse long enough to tell me it was a suicide attempt and she took the pills around 330am. She has no current complaints. Further information will need to be obtained tomorrow. Most of the information in this note was obtained form previous admissions. Her son is suppose to be en route to the hospital and should be able to provide more information. Past Medical History Cardiac Medical History: Denies: Myocardial Infarction, Hypertension Pulmonary Medical History: Reports: Asthma - ALLERGY INDUCED SOB, Chronic Obstructive Pulmonary Disease (COPD) Neurological Medical History: Denies: Seizures Endocrine Medical History: Reports: Diabetes Mellitus Type 2 GI Medical History: Denies: Hepatitis, Hiatal Hernia Psychiatric Medical History: Reports: Bipolar Disorder Hematology: Reports: Anemia Denies: Sickle Cell Disease Past Surgical History Past Surgical History: Reports: Hysterectomy Denies: Amputation, Mastectomy, Pacemaker Social History Smoking Status: Unknown if Ever Smoked Hx Recreational Drug Use: No Drugs: None Hx Prescription Drug Abuse: No Family History Family History: Other - unable to be obtained Family History: Full history unavailable at this time due to patient's mentation Parental Family History Reviewed: Yes Children Family History Reviewed: Yes Sibling(s) Family History Reviewed.: Yes Medication/Allergy Home Medications: Aripiprazole [Abilify 5 mg Tablet] 5 mg PO DAILY 03/22/18 Aspirin [Ecotrin] 81 mg PO DAILY 03/22/18 Estrogens,Conjugated [Premarin 0.625 Mg Tablet] 0.625 mg PO DAILY 03/22/18 Levothyroxine Sodium 37.5 mcg PO Q6AM 03/22/18 Cacao Carbonate [Cacao Carbonate ER 450 mg Tablet] 450 mg PO Q12 03/22/18 Metoprolol Succinate [Toprol Xl 50 mg Tab.sr] 50 mg PO DAILY 03/22/18 Quetiapine Fumarate [Quetiapine Fumarate ER] 50 mg PO QPM 03/22/18 Quetiapine Fumarate [Quetiapine Fumarate ER] 200 mg PO QPM 03/22/18 Quetiapine Fumarate [Seroquel 25 mg Tablet] 25 mg PO QHS 03/22/18 Allergies/Adverse Reactions: divalproex sodium [From Depakote] Allergy (Unknown, Verified 01/08/16 12:18) risperidone [From Risperdal] Allergy (Unknown, Verified 01/08/16 12:18) topiramate [From Topamax] Allergy (Unknown, Verified 01/08/16 12:18) Physical Exam Vital Signs: Temp Pulse Resp BP Pulse Ox 97.4 F 12 134/67 H 97 03/22/18 09:30 03/22/18 16:01 03/22/18 16:01 03/22/18 16:01 Intake & Output 03/21/18 03/22/18 03/23/18 06:59 06:59 06:59 Weight 84.6 kg General appearance: PRESENT: no acute distress Head exam: PRESENT: other - head is bandaged. superifical cut on bridge of nose Eye exam: PRESENT: PERRLA Ear exam: PRESENT: normal external ear exam Mouth exam: PRESENT: moist, neck supple, tongue midline Respiratory exam: PRESENT: prolonged expiratory phas, unlabored, other - no wheeze or rhonchi Cardiovascular exam: PRESENT: RRR, +S1, +S2 Pulses: PRESENT: normal dorsalis pedis pul Vascular exam: PRESENT: normal capillary refill GI/Abdominal exam: PRESENT: normal bowel sounds, soft. ABSENT: distended, guarding, mass, organolmegaly, rebound, tenderness Rectal exam: PRESENT: deferred Extremities exam: PRESENT: full ROM. ABSENT: calf tenderness, clubbing, pedal edema Neurological exam: PRESENT: alert, altered, awake, oriented to person, oriented to place, oriented to situation, CN II-XII grossly intact Psychiatric exam: PRESENT: flat affect - /blunted Results Laboratory Results: 03/22/18 10:47 03/22/18 10:47 03/22/18 03/22/18 03/22/18 10:47 10:47 10:47 WBC 10.5 RBC 4.70 Hgb 14.4 Hct 42.3 MCV 90 MCH 30.6 MCHC 33.9 RDW 13.8 Plt Count 233 Seg Neutrophils % 51.8 Lymphocytes % 39.0 Monocytes % 5.3 Eosinophils % 3.0 Basophils % 0.9 Absolute Neutrophils 5.4 Absolute Lymphocytes 4.1 Absolute Monocytes 0.6 Absolute Eosinophils 0.3 Absolute Basophils 0.1 Sodium 144.4 Potassium 5.9 H Chloride 110 H Carbon Dioxide 27 Anion Gap 7 BUN 16 Creatinine 1.04 Est GFR ( Amer) > 60 Est GFR (Non-Af Amer) 52 L Glucose 143 H Calcium 10.3 H Magnesium 2.3 Total Bilirubin 0.6 AST 49 H ALT 60 H Alkaline Phosphatase 132 H Total Protein 8.6 H Albumin 4.6 Urine Color STRAW Urine Appearance CLEAR Urine pH 5.0 Ur Specific Spruce 1.006 Urine Protein NEGATIVE Urine Glucose (UA) NEGATIVE Urine Ketones NEGATIVE Urine Blood NEGATIVE Urine Nitrite NEGATIVE Ur Leukocyte Esterase NEGATIVE Urine WBC (Auto) 0 Impressions: Cervical Spine CT 03/22/18 09:38 IMPRESSION: No acute findings Head CT 03/22/18 09:38 IMPRESSION: Chronic white matter disease. No acute findings EVIDENCE OF ACUTE STROKE: NO. Chest X-Ray 03/22/18 11:06 IMPRESSION: Left basilar airspace disease atelectasis versus pneumonia Assessment & Plan - Diagnosis (1) Gabapentin overdose Qualifiers: Encounter type: initial encounter Injury intent: intentional self-harm Qualified Code(s): T42.6X2A - Poisoning by other antiepileptic and sedative- hypnotic drugs, intentional self-harm, initial encounter Is this a current diagnosis for this admission?: Yes (2) Suicidal ideation Is this a current diagnosis for this admission?: Yes (3) Bipolar disorder Is this a current diagnosis for this admission?: Yes (4) DVT prophylaxis Is this a current diagnosis for this admission?: Yes (5) Diabetes mellitus type II, controlled Qualifiers: Diabetes mellitus fpc insulin use: without fpc use Diabetes mellitus complication status: without complication Qualified Code(s): E11.9 - Type 2 diabetes mellitus without complications Is this a current diagnosis for this admission?: Yes (6) Hypothyroidism Qualifiers: Hypothyroidism type: unspecified Qualified Code(s): E03.9 - Hypothyroidism, unspecified Is this a current diagnosis for this admission?: Yes - Time Time Spent: 50 to 70 Minutes Critical Time spent with patient: 15-24 minutes Medications reviewed and adjusted accordingly: Yes Anticipated discharge: Other - inpatient psych - Inpatient Certification Based on my medical assessment, after consideration of the patient's comorbidities, presenting symptoms, or acuity I expect that the services needed warrant INPATIENT care.: Yes I certify that my determination is in accordance with my understanding of Medicare's requirements for reasonable and necessary INPATIENT services [42 CFR 412.3e].: Yes - Plan Summary Plan Summary: 1. Suicidal ideation/gabapentin overdose. due to gabapentin pharmokinetics it is rare that long effects are suffered from o/d. -monitor on telemetry floor -check labs in am -suicide precautions -re-start lithium tomorrow for anti-suicidal effects and once we have more information -likely needs to be IVC and d/c to psych facility once medically clear 2. Hyperkalemia -start IVF 115 cc/hr -lasix iv 40mg x 1 -kayexelate 30mg x 1 -recheck in 6 hours 3. elevated LFT's -uncertain of cause. re-check in am. review home meds and otc meds 4. COPD -stable -prn duonebs and supplemental o2 as needed 5. DM -check a1c 6. HyperCa+ -likely dehydration 7.bipolar -25mg seroquel qhs -avoid sedating medications/large doses until gabapentin has time to clear -evaluate medications tomorrow once more information is available 8. Parkinson's -recent diagnosis per nurse/friend NPO until evaluated by ST or nursing. Then may be placed on appropriate diet/. Plan discussed with ER nurse..
[2018-03-22] MEDS: ENOXAPARIN SODIUM INJ 40 MG/0.4 ML DISP.SYRIN SUBCUT SCH (21:08)
[2018-03-22] MEDS: QUETIAPINE FUMARATE 25 MG TABLET PO SCH (21:12)
[2018-03-23 05:06] LABS: ABSOLUTE BASOPHILS # (AUTO) 0.1 10^3/uL (0.0-0.2); ABSOLUTE EOSINOPHILS # (AUTO) 0.2 10^3/uL (0.0-0.6); ABSOLUTE LYMPHOCYTES (AUTO) 4.2 10^3/uL (0.5-4.7); ABSOLUTE NEUT (AUTO) 8.3 10^3/uL (1.7-8.2); BASOPHILS % (AUTO) 0.6 % (0-2); EOSINOPHILS % (AUTO) 1.7 % (0-6); HEMATOCRIT 37.4 % (36.0-47.0); HEMOGLOBIN 12.4 g/dL (12.0-15.5); LYMPHOCYTES % (AUTO) 30.1 % (13-45); MEAN CORPUSCULAR HEMOGLOBIN 29.8 pg (27.0-33.4); MEAN CORPUSCULAR HGB CONC 33.2 g/dL (32.0-36.0); MEAN CORPUSCULAR VOLUME 90 fl (80-97); MONOCYTES % (AUTO) 7.6 % (3-13); PLATELET COUNT 223 10^3/uL (150-450); RED BLOOD COUNT 4.16 10^6/uL (3.72-5.28); RED CELL DISTRIBUTION WIDTH 13.9 % (11.5-14.0); TOTAL CELLS COUNTED % (AUTO) 100 %; WHITE BLOOD COUNT 13.8 10^3/uL (4.0-10.5)
[2018-03-23 05:10] LABS: INTERNATIONAL RATION (INR) 1.11; PROTHROMBIN TIME 14.9 SEC (11.4-15.4)
[2018-03-23 05:23] LABS: ALANINE AMINOTRANSFERASE 48 U/L (9-52); ALBUMIN 3.7 g/dL (3.5-5.0); ALKALINE PHOSPHATASE 91 U/L (38-126); ANION GAP 7 (5-19); ASPARTATE AMINO TRANSFERASE 32 U/L (14-36); BILIRUBIN,DIRECT 0.2 mg/dL (0.0-0.4); BILIRUBIN,TOTAL 0.6 mg/dL (0.2-1.3); BLOOD UREA NITROGEN 15 mg/dL (7-20); CARBON DIOXIDE 26 mmol/L (22-30); CHLORIDE 109 mmol/L (98-107); GLUCOSE 138 mg/dL (75-110); POTASSIUM 3.6 mmol/L (3.6-5.0); SODIUM 141.7 mmol/L (137-145); TOTAL PROTEIN 6.9 g/dL (6.3-8.2)
[2018-03-23] MEDS: LEVOTHYROXINE SODIUM 0.025 MG TABLET PO SCH (05:24)
[2018-03-23] MEDS: NORMAL SALINE 1000 ML 1,000 ML IV PRN ×2 (06:00→15:35)
[2018-03-23] MEDS ORDERED: ENOXAPARIN SODIUM INJ 40 MG/0.4 ML DISP.SYRIN SUBCUT SCH (10:00)
[2018-03-23] MEDS: METOPROLOL SUCCINATE 50 MG TAB.SR.24H PO SCH (10:04)
[2018-03-23] MEDS: ASPIRIN 81 MG TABLET, ENT COATED PO SCH (10:04)
[2018-03-23] MEDS: ESTROGENS,CONJUGATED 0.625 MG TABLET PO SCH (10:04)
[2018-03-23] MEDS: ENOXAPARIN SODIUM INJ 40 MG/0.4 ML DISP.SYRIN SUBCUT SCH (10:05)
--- NOTE | 2018-03-23 18:56 | PDOC PROGRESS REPORT ---
Subjective Progress Note for:: 03/23/18 Subjective:: Patient is a 73-year-old female with a past medical history of bipolar, CKD, hypertension, hypothyroid, and suicide attempts. Patient was seen walking with physical therapy today. She was later evaluated in her room. She is calm and cooperative. She does not remember much after her son left around 7:30 PM, and waking up in the hospital. She does endorse that it was a possible suicide attempt. She does report issues like this in the past. She cannot identify any acute reason that she would do that. She is agreeable to seeking help. Her white blood cell count is slightly elevated, but she denies any signs or symptoms related to infection. She continues to feel a little groggy from the medication overdose. Reason For Visit: SUICIDE ATTEMPT VIA OVERDOSE Physical Exam Vital Signs: Temp Pulse Resp BP Pulse Ox 98.8 F 101 H 16 119/54 L 97 03/23/18 15:56 03/23/18 15:56 03/23/18 15:56 03/23/18 15:56 03/23/18 15:56 Intake & Output 03/22/18 03/23/18 03/24/18 06:59 06:59 06:59 Intake Total 1852 Balance 1852 Weight 56.4 kg General appearance: PRESENT: no acute distress Head exam: PRESENT: normocephalic, other - Bandaged for superficial wounds. Eye exam: PRESENT: conjunctiva pink, EOMI, PERRLA. ABSENT: scleral icterus Ear exam: PRESENT: normal external ear exam Mouth exam: PRESENT: moist, tongue midline Respiratory exam: PRESENT: clear to auscultation jacey Cardiovascular exam: PRESENT: RRR, +S1, +S2 Pulses: PRESENT: normal dorsalis pedis pul Vascular exam: PRESENT: normal capillary refill GI/Abdominal exam: PRESENT: normal bowel sounds, soft. ABSENT: distended, guarding, mass, organolmegaly, rebound, tenderness Rectal exam: PRESENT: deferred Neurological exam: PRESENT: alert, awake, oriented to person, oriented to place, oriented to time, oriented to situation, CN II-XII grossly intact. ABSENT: motor sensory deficit Psychiatric exam: PRESENT: anxious, depressed, flat affect Skin exam: PRESENT: abrasion - Bridge of nose Results Laboratory Results: 03/23/18 04:20 03/23/18 04:20 03/22/18 03/23/18 03/23/18 23:54 04:20 04:20 WBC 13.8 H RBC 4.16 Hgb 12.4 Hct 37.4 MCV 90 MCH 29.8 MCHC 33.2 RDW 13.9 Plt Count 223 Seg Neutrophils % 60.0 Lymphocytes % 30.1 Monocytes % 7.6 Eosinophils % 1.7 Basophils % 0.6 Absolute Neutrophils 8.3 H Absolute Lymphocytes 4.2 Absolute Monocytes 1.0 Absolute Eosinophils 0.2 Absolute Basophils 0.1 Sodium 141.7 Potassium 3.9 D 3.6 Chloride 109 H Carbon Dioxide 26 Anion Gap 7 BUN 15 Creatinine 0.93 Est GFR ( Amer) > 60 Est GFR (Non-Af Amer) 59 L Glucose 138 H Calcium 9.0 Magnesium 1.9 Total Bilirubin 0.6 AST 32 ALT 48 Alkaline Phosphatase 91 Total Protein 6.9 Albumin 3.7 TSH 03/23/18 04:20 WBC RBC Hgb Hct MCV MCH MCHC RDW Plt Count Seg Neutrophils % Lymphocytes % Monocytes % Eosinophils % Basophils % Absolute Neutrophils Absolute Lymphocytes Absolute Monocytes Absolute Eosinophils Absolute Basophils Sodium Potassium Chloride Carbon Dioxide Anion Gap BUN Creatinine Est GFR ( Amer) Est GFR (Non-Af Amer) Glucose Calcium Magnesium Total Bilirubin AST ALT Alkaline Phosphatase Total Protein Albumin TSH 0.91 Impressions: Cervical Spine CT 03/22/18 09:38 IMPRESSION: No acute findings Head CT 03/22/18 09:38 IMPRESSION: Chronic white matter disease. No acute findings EVIDENCE OF ACUTE STROKE: NO. Chest X-Ray 03/22/18 11:06 IMPRESSION: Left basilar airspace disease atelectasis versus pneumonia Assessment & Plan - Diagnosis (1) Gabapentin overdose Qualifiers: Encounter type: initial encounter Injury intent: intentional self-harm Qualified Code(s): T42.6X2A - Poisoning by other antiepileptic and sedative- hypnotic drugs, intentional self-harm, initial encounter Is this a current diagnosis for this admission?: Yes (2) Suicidal ideation Is this a current diagnosis for this admission?: Yes (3) Bipolar disorder Is this a current diagnosis for this admission?: Yes (4) DVT prophylaxis Is this a current diagnosis for this admission?: Yes (5) Diabetes mellitus type II, controlled Qualifiers: Diabetes mellitus longterm insulin use: without longterm use Diabetes mellitus complication status: without complication Qualified Code(s): E11.9 - Type 2 diabetes mellitus without complications Is this a current diagnosis for this admission?: Yes (6) Hypothyroidism Qualifiers: Hypothyroidism type: unspecified Qualified Code(s): E03.9 - Hypothyroidism, unspecified Is this a current diagnosis for this admission?: Yes (7) Hypertension Qualifiers: Hypertension type: essential hypertension Qualified Code(s): I10 - Esse ntial (primary) hypertension Is this a current diagnosis for this admission?: Yes - Time Time Spent with patient: 25-34 minutes Medications reviewed and adjusted accordingly: Yes Anticipated discharge: Other - Inpatient psychiatric - Inpatient Certification Based on my medical assessment, after consideration of the patient's comorbidities, presenting symptoms, or acuity I expect that the services needed warrant INPATIENT care.: Yes I certify that my determination is in accordance with my understanding of Medicare's requirements for reasonable and necessary INPATIENT services [42 CFR 412.3e].: Yes - Plan Summary Plan Summary: 1. Suicidal ideation/gabapentin overdose. due to gabapentin pharmokinetics it is rare that long effects are suffered from o/d. -Consult psychiatry -Continue to monitor 2. Hyperkalemia -Resolved with Lasix and Kayexalate 3. elevated LFT's -resolved 4. COPD -stable -prn duonebs and supplemental o2 as needed 5. DM -a1c 5.7. Currently controlled. 6. HyperCa+ -likely dehydration 7.bipolar -25mg seroquel qhs -Suspect lithium level is accurate, however will recheck since she does have a history of toxicity. 8. Parkinson's -recent diagnosis per nurse/friend Needs outpatient neuro follow-up.
[2018-03-23] MEDS: LITHIUM CARBONATE 450 MG TABLET.ER PO SCH (22:07)
[2018-03-23] MEDS: QUETIAPINE FUMARATE 25 MG TABLET PO SCH (22:07)
[2018-03-24] MEDS: NORMAL SALINE 1000 ML 1,000 ML IV PRN ×3 (00:43→18:23)
[2018-03-24] MEDS: LEVOTHYROXINE SODIUM 0.025 MG TABLET PO SCH (05:35)
[2018-03-24 06:52] LABS: ALANINE AMINOTRANSFERASE 26 U/L (9-52); ALBUMIN 3.1 g/dL (3.5-5.0); ALKALINE PHOSPHATASE 86 U/L (38-126); ASPARTATE AMINO TRANSFERASE 18 U/L (14-36); BILIRUBIN,DIRECT 0.2 mg/dL (0.0-0.4); BILIRUBIN,TOTAL 0.7 mg/dL (0.2-1.3); TOTAL PROTEIN 6.1 g/dL (6.3-8.2)
[2018-03-24] MEDS: METOPROLOL SUCCINATE 50 MG TAB.SR.24H PO SCH (10:10)
[2018-03-24] MEDS: ENOXAPARIN SODIUM INJ 40 MG/0.4 ML DISP.SYRIN SUBCUT SCH (10:11)
[2018-03-24] MEDS: ESTROGENS,CONJUGATED 0.625 MG TABLET PO SCH (10:11)
[2018-03-24] MEDS: ASPIRIN 81 MG TABLET, ENT COATED PO SCH (10:11)
--- NOTE | 2018-03-24 11:17 | PDOC PROGRESS REPORT ---
Subjective Progress Note for:: 03/24/18 Subjective:: Patient is a 73-year-old female with a past medical history of bipolar, hypertension, hypothyroid, multiple suicide attempts, and self-reported diagnosis of Parkinson's. She continues to remember very little about the night she overdosed. She continues to report a diagnosis of Parkinson's disease, however she does not have a tremor at rest. Her overall affect is flat or blunted, so could be considered mass feces. Arm swing and gait are hard to assess at this time as she uses a walker when walking with physical therapy. She denies desiring prior to going to sleep and waking up the other night. She endorses a overwhelming feeling compelling her to commit suicide when she woke up in the middle the night. Over the last 24 hours she has no complaints. There have been no issues reported by nursing staff. Reason For Visit: SUICIDE ATTEMPT VIA OVERDOSE Physical Exam Vital Signs: Temp Pulse Resp BP Pulse Ox 97.4 F 101 H 17 130/59 H 92 03/24/18 07:43 03/24/18 07:43 03/24/18 07:43 03/24/18 07:43 03/24/18 07:43 Intake & Output 03/23/18 03/24/18 03/25/18 06:59 06:59 06:59 Intake Total 3592 947 Balance 3592 947 Weight 56.4 kg 58.5 kg General appearance: PRESENT: no acute distress, cooperative, thin Head exam: PRESENT: other - Superficial scrape-like lesion on her right forehead and bridge of nose. Noninfectious appearing. Limited facial responses. Eye exam: PRESENT: conjunctiva pink, EOMI, PERRLA. ABSENT: scleral icterus Ear exam: PRESENT: normal external ear exam Mouth exam: PRESENT: moist, tongue midline Respiratory exam: PRESENT: clear to auscultation jacey. ABSENT: rales, rhonchi, wheezes Cardiovascular exam: PRESENT: RRR. ABSENT: diastolic murmur, rubs, systolic murmur Pulses: PRESENT: normal dorsalis pedis pul Vascular exam: PRESENT: normal capillary refill GI/Abdominal exam: PRESENT: normal bowel sounds, soft. ABSENT: distended, guarding, mass, organolmegaly, rebound, tenderness Rectal exam: PRESENT: deferred Extremities exam: PRESENT: other - No edema bilateral lower extremities Neurological exam: PRESENT: alert, awake, oriented to person, oriented to place, oriented to time, oriented to situation, CN II-XII grossly intact. ABSENT: motor sensory deficit Psychiatric exam: PRESENT: flat affect, unusual affect, other - Blunted Focused psych exam: PRESENT: other - Possibly delusional? Non-bizarre Results Laboratory Results: 03/23/18 04:20 03/23/18 04:20 03/24/18 05:39 Total Bilirubin 0.7 AST 18 ALT 26 Alkaline Phosphatase 86 Total Protein 6.1 L Albumin 3.1 L 03/22/18 10:47 Clean Catch Midstream Urine Culture - Final NO GROWTH 2 DAYS Impressions: Cervical Spine CT 03/22/18 09:38 IMPRESSION: No acute findings Head CT 03/22/18 09:38 IMPRESSION: Chronic white matter disease. No acute findings EVIDENCE OF ACUTE STROKE: NO. Chest X-Ray 03/22/18 11:06 IMPRESSION: Left basilar airspace disease atelectasis versus pneumonia Assessment & Plan - Diagnosis (1) Gabapentin overdose Qualifiers: Encounter type: initial encounter Injury intent: intentional self-harm Qualified Code(s): T42.6X2A - Poisoning by other antiepileptic and sedative- hypnotic drugs, intentional self-harm, initial encounter Is this a current diagnosis for this admission?: Yes (2) Suicidal ideation Is this a current diagnosis for this admission?: Yes (3) Bipolar disorder Is this a current diagnosis for this admission?: Yes (4) DVT prophylaxis Is this a current diagnosis for this admission?: Yes (5) Diabetes mellitus type II, controlled Qualifiers: Diabetes mellitus fci insulin use: without fci use Diabetes mellitus complication status: without complication Qualified Code(s): E11.9 - Type 2 diabetes mellitus without complications Is this a current diagnosis for this admission?: Yes (6) Hypothyroidism Qualifiers: Hypothyroidism type: unspecified Qualified Code(s): E03.9 - Hypothyroidism, unspecified Is this a current diagnosis for this admission?: Yes (7) Hypertension Qualifiers: Hypertension type: essential hypertension Qualified Code(s): I10 - Essential (primary) hypertension Is this a current diagnosis for this admission?: Yes - Time Time Spent with patient: 25-34 minutes Medications reviewed and adjusted accordingly: Yes Anticipated discharge: Other - Inpatient psych - Inpatient Certification Based on my medical assessment, after consideration of the patient's comorbidities, presenting symptoms, or acuity I expect that the services needed warrant INPATIENT care.: Yes I certify that my determination is in accordance with my understanding of Medicare's requirements for reasonable and necessary INPATIENT services [42 CFR 412.3e].: Yes - Plan Summary Plan Summary: 1. Suicidal ideation/gabapentin overdose. due to gabapentin pharmokinetics it is rare that long effects are suffered from o/d. -Consult psychiatry. Patient appears to be medically stable. The safest treatment for the patient would be to transfer her to an inpatient psychiatric facility on discharge. 2. Hyperkalemia -Resolved with Lasix and Kayexalate 3. elevated LFT's -resolved 4. COPD -stable -prn duonebs and supplemental o2 as needed. Currently on room air 5. DM -a1c 5.7. Currently controlled. 6. HyperCa+ -Resolved. Likely due to dehydration. 7.bipolar -25mg seroquel qhs -Suspect lithium level is accurate, however will recheck level on Tuesday morning since she does have a history of toxicity. -Patient displays no overt signs of audra. 8. Parkinson's -recent diagnosis per patient and her nurse/friend. Unsure if this could possibly be a delusion as she displays limited symptoms at this point. Nursing also reports she has inappropriate sexual feelings towards her son. Wonder if this could be psychosis? She needs an outpatient neurology follow-up. 9. Tachycardia -Mild elevations staying around 100. Probably close to her baseline, and/or related to some anxiety. Disposition: Appears to be medically stable. Psych is aware. Expect she will be discharged in the next couple days.
[2018-03-24] MEDS: LITHIUM CARBONATE 450 MG TABLET.ER PO SCH (22:30)
[2018-03-24] MEDS: QUETIAPINE FUMARATE 25 MG TABLET PO SCH (22:30)
[2018-03-24] MEDS ORDERED: INSULIN LISPRO 100 UNIT/ML 3 ML VIAL SUBCUT PRN (23:00)
[2018-03-24] MEDS ORDERED: DEXTROSE 50%-WATER SYRINGE 25 GM/50 ML DOSE IV PRN (23:00)
[2018-03-24] MEDS ORDERED: GLUCAGON,HUMAN RECOMB 1 MG INJ IM PRN (23:00)
[2018-03-24] MEDS ORDERED: DEXTROSE 50%-WATER SYRINGE 12.5 GM/25 ML DOSE IV PRN (23:00)
[2018-03-24] MEDS ORDERED: DEXTROSE 40% GEL 15 GM TUBE PO PRN (23:00)
[2018-03-24] MEDS ORDERED: DEXTROSE 40% GEL 15 GM TUBE X 2 PO PRN (23:00)
[2018-03-25] MEDS: LEVOTHYROXINE SODIUM 0.025 MG TABLET PO SCH (05:33)
[2018-03-25] MEDS: ESTROGENS,CONJUGATED 0.625 MG TABLET PO SCH (09:41)
[2018-03-25] MEDS: METOPROLOL SUCCINATE 50 MG TAB.SR.24H PO SCH (09:41)
[2018-03-25] MEDS: ASPIRIN 81 MG TABLET, ENT COATED PO SCH (09:41)
[2018-03-25] MEDS: ENOXAPARIN SODIUM INJ 40 MG/0.4 ML DISP.SYRIN SUBCUT SCH (09:41)
[2018-03-25] MEDS: NORMAL SALINE 1000 ML 1,000 ML IV PRN (14:05)
--- NOTE | 2018-03-25 14:33 | PDOC PROGRESS REPORT ---
Subjective Progress Note for:: 03/25/18 Subjective:: Patient is a 73-year-old female with a past medical history of bipolar, hypertension, hypothyroid, multiple suicide attempts, and self-reported diagnosis of Parkinson's. Ms Johnson continues to have no medical complaints. She continues to have a 1:1 sitter and remains on IVC status. she is tolerating oral foods. She has had a bowel movement in the last 48 hours. She does seem to have excessive worry about the future. She is starting to recall more about the night she attempted overdose. She is agreeable to inpatient psychiatry transfer. She is aware of the pending transfer to [place]. Nursing has no specific reports or complaints. Reason For Visit: SUICIDE ATTEMPT VIA OVERDOSE Physical Exam Vital Signs: Temp Pulse Resp BP Pulse Ox 98.3 F 79 16 126/51 H 97 03/25/18 11:58 03/25/18 11:58 03/25/18 11:58 03/25/18 11:58 03/25/18 11:58 Intake & Output 03/24/18 03/25/18 03/26/18 06:59 06:59 06:59 Intake Total 3592 4336 Balance 3592 4336 Weight 58.5 kg 62.3 kg General appearance: PRESENT: no acute distress, cooperative, well-developed, well-nourished Head exam: PRESENT: normocephalic, other - Shallow noninfectious appearing lumbar abrasion above right brow and on bridge of nose. Eye exam: PRESENT: conjunctiva pink, EOMI, PERRLA. ABSENT: scleral icterus Ear exam: PRESENT: normal external ear exam Mouth exam: PRESENT: moist, tongue midline Neck exam: ABSENT: carotid bruit, JVD, lymphadenopathy, thyromegaly Respiratory exam: PRESENT: clear to auscultation jacey. ABSENT: rales, rhonchi, wheezes Cardiovascular exam: PRESENT: RRR. ABSENT: diastolic murmur, rubs, systolic murmur Pulses: PRESENT: normal dorsalis pedis pul Vascular exam: PRESENT: normal capillary refill GI/Abdominal exam: PRESENT: normal bowel sounds, soft. ABSENT: distended, guarding, mass, organolmegaly, rebound, tenderness Rectal exam: PRESENT: deferred Extremities exam: PRESENT: full ROM. ABSENT: calf tenderness, clubbing, pedal edema Musculoskeletal exam: PRESENT: ambulatory, full ROM Neurological exam: PRESENT: alert, awake, oriented to person, oriented to place, oriented to time, oriented to situation, CN II-XII grossly intact. ABSENT: m otor sensory deficit Psychiatric exam: PRESENT: appropriate affect, flat affect - /Blunted affect. Questionable delusions?. ABSENT: homicidal ideation, suicidal ideation Skin exam: PRESENT: dry, intact, warm. ABSENT: cyanosis, rash Results Laboratory Results: 03/23/18 04:20 03/23/18 04:20 03/22/18 10:47 Clean Catch Midstream Urine Culture - Final NO GROWTH 2 DAYS Impressions: Cervical Spine CT 03/22/18 09:38 IMPRESSION: No acute findings Head CT 03/22/18 09:38 IMPRESSION: Chronic white matter disease. No acute findings EVIDENCE OF ACUTE STROKE: NO. Chest X-Ray 03/22/18 11:06 IMPRESSION: Left basilar airspace disease atelectasis versus pneumonia Assessment & Plan - Diagnosis (1) Gabapentin overdose Qualifiers: Encounter type: initial encounter Injury intent: intentional self-harm Qualified Code(s): T42.6X2A - Poisoning by other antiepileptic and sedative- hypnotic drugs, intentional self-harm, initial encounter Is this a current diagnosis for this admission?: Yes (2) Suicidal ideation Is this a current diagnosis for this admission?: Yes (3) Bipolar disorder Is this a current diagnosis for this admission?: Yes (4) DVT prophylaxis Is this a current diagnosis for this admission?: Yes (5) Diabetes mellitus type II, controlled Qualifiers: Diabetes mellitus long-term insulin use: 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 Diabetes mellitus complication status: without complication Qualified Code(s): E11.9 - Type 2 diabetes mellitus without complications Is this a current diagnosis for this admission?: Yes (6) Hypothyroidism Qualifiers: Hypothyroidism type: unspecified Qualified Code(s): E03.9 - Hypothyroidism, unspecified Is this a current diagnosis for this admission?: Yes (7) Hypertension Qualifiers: Hypertension type: essential hypertension Qualified Code(s): I10 - Essential (primary) hypertension Is this a current diagnosis for this admission?: Yes - Time Time Spent with patient: 25-34 minutes Within: Other - Psychiatric inpatient - Inpatient Certification Based on my medical assessment, after consideration of the patient's comorbidities, presenting symptoms, or acuity I expect that the services needed warrant INPATIENT care.: Yes I certify that my determination is in accordance with my understanding of Medicare's requirements for reasonable and necessary INPATIENT services [42 CFR 412.3e].: Yes - Plan Summary Plan Summary: 1. Suicidal ideation/gabapentin overdose. due to gabapentin pharmokinetics it is rare that long effects are suffered from o/d. -Psych is involved. Patient is pending transfer to [facility] in [place]. Patient appears to be medically stable. The safest and most appropriate treatment for the patient is a transfer to an inpatient psychiatric facility on discharge. 2. Hyperkalemia -Resolved with Lasix and Kayexalate 3. elevated LFT's -resolved 4. COPD -stable. prn duonebs and supplemental o2 as needed. Currently on room air 5. DM -a1c 5.7. Continue to monitor if patient has 2 blood glucose levels greater than 180 on consecutive readings, will consider initiating insulin therapy in the hospital setting 6. HyperCa+ -Resolved. Likely due to dehydration. 7.bipolar -25mg seroquel qhs -Suspect lithium level is accurate, however will recheck level on Tuesday morning since she does have a history of toxicity. -Patient displays no overt signs of audra. 8. Parkinson's -recent diagnosis per patient and her nurse/friend. Unsure if this could possibly be a delusion as she displays limited symptoms outside of masked facies at this point. I also have not evaluated her gait. Nursing also reports patient has inappropriate sexual feelings towards her son. Wonder if this could be psychosis? She needs an outpatient neurology follow-up. 9. Tachycardia -Resolved suspect this was due to anxiety. Disposition: Appears to be medically stable. Pending transfer to [facility].
--- NOTE | 2018-03-25 18:47 | PDOC DISCHARGE SUMMARY ---
Addendum entered and electronically signed by ADRIANO OCAMPO PA-C 03/25/18 18:48: Provider Note Provider Note: No prescriptions were provided on discharge. Patient's medical stay was relatively uneventful. She has been cooperative throughout. She is able to complete her ADLs independently. Original Note: General - Admit/Disc Date/PCP Admission Date/Primary Care Provider: 03/22/18 15:32 Discharge Date: 03/25/18 - Discharge Diagnosis (1) Gabapentin overdose Is this a current diagnosis for this admission?: Yes (2) Suicidal ideation Is this a current diagnosis for this admission?: Yes (3) Bipolar disorder Is this a current diagnosis for this admission?: Yes (4) DVT prophylaxis Is this a current diagnosis for this admission?: Yes (5) Diabetes mellitus type II, controlled Is this a current diagnosis for this admission?: Yes (6) Hypothyroidism Is this a current diagnosis for this admission?: Yes (7) Hypertension Is this a current diagnosis for this admission?: Yes - Additional Information Resuscitation Status: Full Code Discharge Diet: Diabetic Discharge Activity: Activity As Tolerated Home Medications: [place] Carbonate [[place] Carbonate ER 450 mg Tablet] 450 mg PO Q12 03/22/18 Aspirin [Ecotrin 81 mg EC Tablet] 81 mg PO DAILY tabec 03/25/18 Estrogens,Conjugated [Premarin 0.625 mg Tablet] 0.625 mg PO DAILY tablet 03/25/18 Levothyroxine Sodium [Synthroid 0.025 mg Tablet] 0.0375 mg PO Q6AM tablet 03/25/18 [place] Carbonate [[place] Carbonate ER 450 mg Tablet] 450 mg PO QHS tablet.er 03/25/18 Melatonin [Melatonin 3 mg Tablet] 3 mg PO HSP PRN tablet 03/25/18 Metoprolol Succinate [Toprol Xl 50 mg Tab.sr] 50 mg PO DAILY tab.sr.24h 03/25/18 Quetiapine Fumarate [Seroquel 25 mg Tablet] 25 mg PO QHS tablet 03/25/18 History of Present Illness History of Present Illness: CASSANDRA LOOMIS is a 73 year old female with past medical hx of bipolar, hypothyroid, suicide attempts. Limited information is available at this time as the patient is still sleepy from her apparent overdose attempt with gabapentin. She was last seen approx 730pm last night by her son and felt to be doing fine. She has a nurse that checks on her daily that became suspicious when patient did not answer the tele phone this am. she was found with empty bottles of gabapentin in the residence, and brought to the ER by EMS. Patient does arouse long enough to tell me it was a suicide attempt and she took the pills around 330am. She has no current complaints. Further information will need to be obtained tomorrow. Most of the information in this note was obtained form previous admissions. Her son is suppose to be en route to the hospital and should be able to provide more information. Hospital Course Hospital Course: 1. Suicidal ideation/gabapentin overdose. due to gabapentin pharmokinetics it is rare that long effects are suffered from o/d. -suicide precautions. Patient remained on IVC and had a sitter one-to-one while mated. -She was restarted on 450 mg nightly of lithium given its anti-suicidal effects 2. Hyperkalemia -Resolved with the starting of IV fluids, Kayexalate 30 mg x1 and Lasix 40mg iv x1. 3. elevated LFT's -May have been due to acute situation. They return to normal limits during the first 24 hours. . 4. COPD -stable -prn duonebs and supplemental o2 were provided 5. DM -Test diagnosis. A1c 5.7. Blood glucose levels were elevated between 113 and 190 suspected to be due to acute stress. 6. HyperCa+ -Resolved with IV fluids and was within normal limits when corrected for albumin. 7.bipolar - gabapentin was not restarted. She was placed on 25 mg nightly of Seroquel and 3 mg of melatonin nightly. She slept well on these doses. We chose to avoid sedating medications due to the overdose prior to admission. 8. Parkinson's -recent diagnosis per nurse/friend. -Unclear if this is possibly a delusion. She displays limited symptoms of Parkinson's. She does have masked facies, and her gait was not fully assessed. No tremor noted at baseline Tolerated an oral diet well. She was evaluated by PT OT and ST while admitted. Further management deferred to the psychiatric excepting facility. Physical Exam Vital Signs: Temp Pulse Resp BP Pulse Ox 98.3 F 79 16 126/51 H 95 03/25/18 11:58 03/25/18 14:27 03/25/18 14:27 03/25/18 11:58 03/25/18 14:28 Intake & Output 03/24/18 03/25/18 03/26/18 06:59 06:59 06:59 Intake Total 3592 4336 Balance 3592 4336 Weight 58.5 kg 62.3 kg General appearance: PRESENT: no acute distress Head exam: PRESENT: other - Small abrasion above right eyebrow and on bridge of nose Eye exam: PRESENT: PERRLA Ear exam: PRESENT: normal external ear exam Mouth exam: PRESENT: moist, tongue midline Respiratory exam: PRESENT: clear to auscultation jacey. ABSENT: rales, rhonchi, wheezes Cardiovascular exam: PRESENT: RRR. ABSENT: diastolic murmur, rubs, systolic murmur Pulses: PRESENT: normal dorsalis pedis pul Vascular exam: PRESENT: normal capillary refill GI/Abdominal exam: PRESENT: normal bowel sounds, soft. ABSENT: distended, guarding, mass, organolmegaly, rebound, tenderness Rectal exam: PRESENT: deferred Extremities exam: PRESENT: full ROM. ABSENT: calf tenderness, clubbing, pedal edema Musculoskeletal exam: PRESENT: full ROM, normal inspection Neurological exam: PRESENT: alert, awake, oriented to person, oriented to place, oriented to time, oriented to situation, CN II-XII grossly intact. ABSENT: motor sensory deficit Psychiatric exam: PRESENT: other - Flat/blunted affect Results Laboratory Results: 03/23/18 04:20 03/23/18 04:20 Impressions: Cervical Spine CT 03/22/18 09:38 IMPRESSION: No acute findings Head CT 03/22/18 09:38 IMPRESSION: Chronic white matter disease. No acute findings EVIDENCE OF ACUTE STROKE: NO. Chest X-Ray 03/22/18 11:06 IMPRESSION: Left basilar airspace disease atelectasis versus pneumonia Qualifiers - * PATIENT BEING DISCHARGED WITH ANY OF THE FOLLOWING DIAGNOSIS: VTE (PE or DVT) VTE patient discharged on overlapping Therapy?: No Reason(s) for not prescribing Overlap Therapy:: Not indicated Plan Discharge Plan: Transfer to inpatient psychiatric facility for further management. No changes were made to the medical medications. Decreases in psych medications were made, however management deferred to the psychiatric facility thank you for accepting this patient. Activity as tolerated Diet regular Follow-up with primary care physician and neurologist and psychiatrist when discharged from inpatient psychiatric unit Time Spent: Greater than 30 Minutes
[2018-03-25] MEDS: LITHIUM CARBONATE 450 MG TABLET.ER PO SCH (21:32)
[2018-03-25] MEDS: QUETIAPINE FUMARATE 25 MG TABLET PO SCH (21:32)
[2018-03-26] MEDS: LEVOTHYROXINE SODIUM 0.025 MG TABLET PO SCH (05:39)
[2018-03-26 08:28] VITALS: BP 122/44
== END 2018-03-26 10:10 | DRG 918 ==
LOC: ER 09:22 → EH 15:32 → 5 18:34
PROVIDERS: ADMIT Hospitalist; ATTEND Hospitalist
PROC: 3E0F73Z Introduction of Anti-inflammatory into Respiratory Tract, Via Natural or Artificial Opening (ICD-10-PCS; principal; 2018-03-22)
DX: T42.6X2A Poisoning by other antiepileptic and sedative-hypnotic drugs, intentional self-harm, initial encounter (principal); Y92.003 Bedroom of unspecified non-institutional (private) residence as the place of occurrence of the external cause; F31.9 Bipolar disorder, unspecified; I10 Essential (primary) hypertension; E87.5 Hyperkalemia; E83.52 Hypercalcemia; G20 Parkinson's disease; E11.9 Type 2 diabetes mellitus without complications; E03.9 Hypothyroidism, unspecified; Z79.82 Long term (current) use of aspirin; Z79.84 Long term (current) use of oral hypoglycemic drugs; Z79.899 Other long term (current) drug therapy; Z91.5 Personal history of self-harm; J44.9 Chronic obstructive pulmonary disease, unspecified; Z90.710 Acquired absence of both cervix and uterus; Z88.8 Allergy status to other drugs, medicaments and biological substances
CPT/HCPCS: 36415; 51701; 70450; 71045; 72125; 80053; 80076; 80178; 80307; 81001; 82962; 83036; 83735; 84132; 84443; 85025; 85610; 87086; 93005; 93010; 96374; 99291; G8978-GP; G8979-GP; G8987-GO; G8988-GO; G8996-GN; G8997-GN; G8998-GN; J1650; J2310; J3490; J7030